=== PATIENT | female | born 1945 | race Caucasian/White ===

== ENCOUNTER → 2020-09-10 | Outpatient (CLI) | payer MEDICARE | LOC: RAD 10:07 | PROVIDERS: ATTEND Family Medicine | DX: Z12.31 Encounter for screening mammogram for malignant neoplasm of breast (principal) | CPT/HCPCS: 77063 ==

== ENCOUNTER → 2022-05-06 | Outpatient (CLI) | payer MEDICARE ==
--- NOTE | 2022-05-06 16:49 | Diagnostic Imaging Report ---
Indication: Routine screening. Comparison is made with prior mammograms from 09/10/2020 and 05/31/2018. Unilateral right 2-D and 3-D screening mammography was performed with CAD. Right breast is heterogeneously dense, limiting the sensitivity of mammography. No mass or malignant-appearing microcalcifications are seen. Right axilla is unremarkable. IMPRESSION: BI-RADS Category 1 No mammographic features suspicious for malignancy are identified. ACR BI-RADS Category 1: Negative. Result letter will be mailed to the patient. Note: At least 10% of breast cancer is not imaged by mammography. Dictated by: Dictated on workstation # [id number]
== END ==
LOC: RAD 10:29
PROVIDERS: ATTEND Nurse Practitioner Family
DX: Z12.31 Encounter for screening mammogram for malignant neoplasm of breast (principal)
CPT/HCPCS: 77063

== ENCOUNTER 2023-02-07 23:14 | Inpatient (IN) | payer MEDICARE ==
[~2023-02-07] VITALS: Ht 167.7 cm; Wt 146.7 kg
[2023-02-08 00:02] LABS: BASOPHILS % (AUTO) 0 % (0-10); EOSINOPHILS # (AUTO) 0.1 10^3/uL (0.0-0.3); EOSINOPHILS % (AUTO) 1 % (0-10); HEMATOCRIT 39 % (35-52); HEMOGLOBIN 12.8 g/dL (11.5-16.0); LYMPHOCYTES # (AUTO) 0.5 10^3/uL (1.0-4.0); LYMPHOCYTES % (AUTO) 5 % (12-44); MEAN CORPUSCULAR HEMOGLOBIN 34 pg (25-34); MEAN CORPUSCULAR HGB CONC 33 g/dL (32-36); MEAN CORPUSCULAR VOLUME 104 fL (80-99); MEAN PLATELET VOLUME 9.2 fL (9.0-12.2); MONOCYTES # (AUTO) 0.5 10^3/uL (0.0-1.0); MONOCYTES % (AUTO) 6 % (0-12); NEUTROPHILS # (AUTO) 7.5 10^3/uL (1.8-7.8); NEUTROPHILS % (AUTO) 85 % (42-75); PLATELET COUNT 135 10^3/uL (130-400); WHITE BLOOD COUNT 8.8 10^3/uL (4.3-11.0)
[2023-02-08 00:10] LABS: INR 1.3 (0.8-1.4); PROTHROMBIN TIME PATIENT 16.4 SEC (12.2-14.7)
[2023-02-08 00:17] LABS: BAND NEUTROPHILS 4 %; EOSINOPHILS % (MANUAL) 1 %; LYMPHOCYTES % (MANUAL) 4 %; MONOCYTES % (MANUAL) 4 %; NEUTROPHILS % (MANUAL) 87 %; PLATELET ESTIMATE ADEQUATE
[2023-02-08 00:18] LABS: ANISOCYTOSIS SLIGHT; POIKILOCYTOSIS MODERATE
[2023-02-08 00:21] LABS: ALBUMIN 2.6 GM/DL (3.2-4.5); BILIRUBIN,TOTAL 2.9 MG/DL (0.1-1.0); CALCIUM 8.4 MG/DL (8.5-10.1); CREATININE SERUM 1.33 MG/DL (0.60-1.30); POTASSIUM 4.3 MMOL/L (3.6-5.0); TOTAL PROTEIN 5.5 GM/DL (6.4-8.2)
--- NOTE | 2023-02-08 00:24 | ED General ---
General Chief Complaint: Respiratory Problems Stated Complaint: SOA Nursing Triage Note: Pt presents via EMS with c/o SOA worsening over the past week, and increasing confusion. Pt states that she was tested for covid on tuesday, and was negative. 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 She also reports increased swelling in feet and legs. Pt denies chest pain. Source of Information: Patient Exam Limitations: No Limitations History of Present Illness Date Seen by Provider: Feb 07, 2023 Time Seen by Provider: 23:17 Initial Comments This 77-year-old woman presents to the emergency room via [facility] with concerns about shortness of breath, confusion, marked edema in the lower e xtremities and left upper extremity, and a significant functional decline. Oxygen saturation was 86% on room air but quickly resuscitated with nasal cannula at 3 L administered by EMS. Patient does not normally require oxygen at home. She has mild fever with temperature of 100.4 F during assessment. She tested negative for COVID-19 on February 04. Patient is alert and talkative but disoriented and a confused historian. Family reports she has had difficulty with memory recently. She has also been incontinent. She has had significant functional decline over the last 6 weeks. She has been ambulating with a walker or cane independently for the past several months but was unable to ambulate independently today. She was not able to get in and out of bed or the vehicle on her own. Her edema has been progressively worsening. She does have chronic edema of the left upper extremity due to mastectomy. She has recently been prescribed Lasix a few days per week due to the edema. Her primary care provider is Dr. Watson. Her structural technician is Dr. Sunshine in [place]. Allergies and Home Medications Allergies Coded Allergies: Penicillins (Verified Allergy, Unknown, 02/08/23) Patient Home Medication List Home Medication List Reviewed: Yes Review of Systems Review of Systems Constitutional: see HPI EENTM: no symptoms reported Respiratory: see HPI Cardiovascular: see HPI Gastrointestinal: no symptoms reported Genitourinary: no symptoms reported : No Musculoskeletal: no symptoms reported Skin: no symptoms reported Psychiatric/Neurological: See HPI Hematologic/Lymphatic: No Symptoms Reported Immunological/Allergic: no symptoms reported Past Bpxzjxu-Lguxac-Uxgjib Hx Patient Social History Tobacco Use?: No Substance use?: No Alcohol Use?: No Past Medical History Surgeries: Yes Breast (Left mastectomy), Gallbladder, Hysterectomy Cardiac: Yes ("Enlarged heart") Neurological: No : No Genitourinary: Yes Renal Failure (Chronic kidney disease of unknown baseline) Gastrointestinal: No Musculoskeletal: No Endocrine: Yes Diabetes, Non-Insulin dep HEENT: No Cancer: Yes Breast, Ovarian Psychosocial: No Integumentary: No Physical Exam-Suspected Sepsis Physical Exam Vital Signs Vital Signs - First Documented 02/07/23 23:20 Temp 38.0 Pulse 102 Resp 22 B/P (MAP) 110/63 (79) Pulse Ox 96 O2 Delivery Nasal Cannula O2 Flow Rate 2.00 Capillary Refill : Less Than 3 Seconds Blood Pressure Mean: 79 Height, Weight, BMI Height: '" Weight: lbs. oz. kg; 49.00 BMI Method: General Appearance: No Apparent Distress, WD/WN, Obese HEENT: PERRL/EOMI, Normal ENT Inspection Neck: Normal Inspection; No JVD Respiratory: No Crackles; Decreased Breath Sounds (Diminished in the bases); No Wheezing; Other (Increased work of breathing in the expiratory phase) Cardiovascular: Regular Rate, Rhythm, Systolic Murmur, Other (Marked lower extremity and left upper extremity edema.) Gastrointestinal: Normal Bowel Sounds, Non Tender, Soft Extremity: Non Tender, Pedal Edema, Swelling (Bilateral LE's and left upper extremity. LUE edema is chronic but worsened.) Skin: normal color, warm/dry Focused Exam Sepsis Stage: Sepsis Reason for ruling out sepsis: Sepsis uncertain Lactate Level 02/07/23 23:45: Lactic Acid Level 2.26*H 02/08/23 02:27: Lactic Acid Level 2.06*H Time of Focused Exam: 01:50 Respiratory: Decreased Breath Sounds; No Wheezing; Other (increased work of breathing in expiratory phase) Cardiovascular: Regular Rate, Rhythm, Other (marked LE edema and left hand edema) Capillary Refill: Less Than 3 Seconds Skin: normal color, warm/dry Lactic Acid Level Laboratory Tests Test 02/07/23 23:45 02/08/23 02:27 Lactic Acid Level 2.26 MMOL/L (0.50-2.00) *H 2.06 MMOL/L (0.50-2.00) *H Within 3hrs of presentation: Admin ABX, Blood cultures prior to ABX's, Focus exam, Lactate level Progress/Results/Core Measures Suspected Sepsis SIRS Temperature: Pulse: 102 Respiratory Rate: 22 Laboratory Tests 02/07/23 23:45: White Blood Count 8.8 Blood Pressure 110 /63 Mean: 79 02/07/23 23:45: Lactic Acid Level 2.26*H 02/08/23 02:27: Lactic Acid Level 2.06*H Laboratory Tests 02/07/23 23:45: Creatinine 1.33H, INR Comment 1.3, Platelet Count 135, Total Bilirubin 2.9H Results/Orders Lab Results Laboratory Tests Test 02/07/23 23:22 02/07/23 23:40 02/07/23 23:45 02/08/23 00:30 Range/Units Influenza Type A (RT-PCR) Not Detected Not Detecte Influenza Type B (RT-PCR) Not Detected Not Detecte SARS-CoV-2 RNA (RT-PCR) Not Detected Not Detecte Glucometer 104 70-110 MG/DL White Blood Count 8.8 4.3-11.0 10^3/uL Red Blood Count 3.72 L 3.80-5.11 10^6/uL Hemoglobin 12.8 11.5-16.0 g/dL Hematocrit 39 35-52 % Mean Corpuscular Volume 104 H 80-99 fL Mean Corpuscular Hemoglobin 34 25-34 pg Mean Corpuscular Hemoglobin Concent 33 32-36 g/dL Red Cell Distribution Width 15.1 H 10.0-14.5 % Platelet Count 135 130-400 10^3/uL Mean Platelet Volume 9.2 9.0-12.2 fL Immature Granulocyte % (Auto) 2 % Neutrophils (%) (Auto) 85 H 42-75 % Lymphocytes (%) (Auto) 5 L 12-44 % Monocytes (%) (Auto) 6 0-12 % Eosinophils (%) (Auto) 1 0-10 % Basophils (%) (Auto) 0 0-10 % Neutrophils # (Auto) 7.5 1.8-7.8 10^3/uL Lymphocytes # (Auto) 0.5 L 1.0-4.0 10^3/uL Monocytes # (Auto) 0.5 0.0-1.0 10^3/uL Eosinophils # (Auto) 0.1 0.0-0.3 10^3/uL Basophils # (Auto) 0.0 0.0-0.1 10^3/uL Immature Granulocyte # (Auto) 0.2 H 0.0-0.1 10^3/uL Neutrophils % (Manual) 87 % Lymphocytes % (Manual) 4 % Monocytes % (Manual) 4 % Eosinophils % (Manual) 1 % Band Neutrophils 4 % Platelet Estimate ADEQUATE Poikilocytosis MODERATE Anisocytosis SLIGHT Macrocytosis SLIGHT Prothrombin Time 16.4 H 12.2-14.7 SEC INR Comment 1.3 0.8-1.4 Activated Partial Thromboplast Time 37 H 24-35 SEC Sodium Level 136 135-145 MMOL/L Potassium Level 4.3 3.6-5.0 MMOL/L Chloride Level 104 98-107 MMOL/L Carbon Dioxide Level 22 21-32 MMOL/L Anion Gap 10 5-14 MMOL/L Blood Urea Nitrogen 33 H 7-18 MG/DL Creatinine 1.33 H 0.60-1.30 MG/DL Estimat Glomerular Filtration Rate 41 BUN/Creatinine Ratio 25 Glucose Level 116 H 70-105 MG/DL Lactic Acid Level 2.26 *H 0.50-2.00 MMOL/L Calcium Level 8.4 L 8.5-10.1 MG/DL Corrected Calcium 9.5 8.5-10.1 MG/DL Magnesium Level 2.0 1.6-2.4 MG/DL Total Bilirubin 2.9 H 0.1-1.0 MG/DL Aspartate Amino Transf (AST/SGOT) 32 5-34 U/L Alanine Aminotransferase (ALT/SGPT) 16 0-55 U/L Alkaline Phosphatase 111 40-136 U/L C-Reactive Protein High Sensitivity 12.42 H 0.00-0.50 MG/DL B-Type Natriuretic Peptide 579.9 H <100.0 PG/ML Total Protein 5.5 L 6.4-8.2 GM/DL Albumin 2.6 L 3.2-4.5 GM/DL TSH Garvin Testing 1.59 0.35-4.94 UIU/ML Urine Color YELLOW Urine Clarity CLEAR Urine pH 5.0 5-9 Urine Specific [place] 1.010 L 1.016-1.022 Urine Protein NEGATIVE NEGATIVE Urine Glucose (UA) 3+ H NEGATIVE Urine Ketones NEGATIVE NEGATIVE Urine Nitrite NEGATIVE NEGATIVE Urine Bilirubin NEGATIVE NEGATIVE Urine Urobilinogen 1.0 < = 1.0 MG/DL Urine Leukocyte Esterase NEGATIVE NEGATIVE Urine RBC (Auto) TRACE H NEGATIVE Urine RBC RARE /HPF Urine WBC NONE /HPF Urine Squamous Epithelial Cells RARE /HPF Urine Crystals PRESENT H /LPF Urine Amorphous Sediment FEW DARION URATES H /LPF Urine Bacteria NEGATIVE /HPF Urine Casts NONE /LPF Urine Mucus SMALL H /LPF Urine Culture Indicated NO Test 02/08/23 02:27 Range/Units Lactic Acid Level 2.06 *H 0.50-2.00 MMOL/L My Orders Orders - BALWINDER DAVIS MD Bnp [place] (02/07/23 23:23) Cbc With Automated Diff (02/07/23 23:23) Comprehensive Metabolic Panel (02/07/23 23:23) Magnesium (02/07/23 23:23) Thyroid Analyzer (02/07/23 23:23) Ua Culture If Indicated (02/07/23 23:23) Ed Iv/Invasive Line Start (02/07/23 23:23) Ekg Tracing (02/07/23 23:23) Monitor-Rhythm Ecg Trace Only (02/07/23 23:23) Covid 19 Inhouse Test (02/07/23 23:23) Influenza A And B By Pcr (02/07/23 23:23) Richter Cath (02/07/23 23:47) Blood Culture (02/07/23 23:49) Sputum Culture (02/07/23 23:49) Protime With Inr (02/07/23 23:49) Partial Thromboplastin Time (02/07/23 23:49) Vital Signs Adult Sepsis Patie Q15M (02/07/23 23:49) O2 (02/07/23 23:49) Remove Rings In Anticipation O (02/07/23 23:49) Lactic Acid Analyzer (02/07/23 23:49) Manual Differential (02/07/23 23:45) Chest 1 View, Ap/Pa Only (02/08/23 00:01) Hs C Reactive Protein (02/08/23 00:18) Arterial Blood Gas (02/08/23 00:20) Acetaminophen Tablet (Acetaminophen Ta (02/08/23 00:30) Meropenem Injection (Meropenem Injection (02/08/23 01:00) Furosemide Injection (Furosemide Injec (02/08/23 01:00) Ipratropium/Albuterol Inh Soln (Ipratrop (02/08/23 01:45) Svn Small Volume Nebulizer (02/08/23 01:39) Code/Resuscitation (02/08/23 02:08) Medications Given in ED Current Medications Medications Dose Ordered Sig/Rhonda Route Start Time Stop Time Status Last Admin Dose Admin Acetaminophen 1,000 mg ONCE ONCE PO 02/08/23 00:30 02/08/23 00:31 DC 02/08/23 00:42 1,000 MG Albuterol/ Ipratropium 3 ml ONCE ONCE INH 02/08/23 01:45 02/08/23 01:46 DC 02/08/23 01:54 3 ML Furosemide 40 mg ONCE ONCE IVP 02/08/23 01:00 02/08/23 01:01 DC 02/08/23 01:01 40 MG Meropenem 1000 mg/ Sodium Chloride 100 ml @ 200 mls/hr ONCE ONCE IV 02/08/23 01:00 02/08/23 01:29 DC 02/08/23 01:05 200 MLS/HR Vital Signs/I&O 02/07/23 02/08/23 02/08/23 02/08/23 23:20 00:01 00:04 01:55 Temp 38.0 Pulse 102 Resp 22 B/P (MAP) 110/63 (79) Pulse Ox 96 96 92 O2 Delivery Nasal Cannula Nasal Cannula Nasal Cannula Nasal Cannula O2 Flow Rate 2.00 2.00 2.00 2.00 Capillary Refill : Less Than 3 Seconds Blood Pressure Mean: 79 Point of Care Testing Finger Stick Blood Glucose: 104 Blood Glucose Action Taken: DR. DAVIS NOTIFIED Progress Note #1: Time: 02:20 Progress Note Patient was interviewed and examined upon arrival. Report was received from EMS. She remained on nasal cannula at 2 L and was stable. Septic work-up was pursued. Source of infection is presumed to be the lungs as there is evidence of infiltrate on chest x-ray. There also appears to be a possible pleural effusion on the right. Antibiotic therapy with meropenem was initiated after blood cultures were obtained. Meropenem was selected due to the penicillin allergy. Patient appears to be fluid overloaded as well. Lasix 40 mg IV was administered in the emergency room. Labs were obtained, reviewed, and int erpreted by me. CBC was relatively unremarkable. There was a relative absolute lymphocytes of 0.5. This brings the negative COVID-19 test into question. CMP demonstrated renal impairment with creatinine of 1.33 and a GFR of 41. Remainder of CMP was fairly unremarkable. Thyroid analyzer and magnesium were normal. Lactic acid was elevated at 2.26. CRP was elevated at 12. ABG could not be obtained after multiple attempts. EKG demonstrated sinus rhythm with no ischemic features. Progress Note #2: Time: 02:55 Progress Note Patient has now been transferred to the ICU. Report was given to Dr. Mcfarland, [facility] physician. CODE STATUS was discussed with family who elected a DNR status after conversing amongst themselves. Patient was not asked directly regarding CODE STATUS as she was too confused to make an informed decision. DuoNeb treatment was administered due to prolonged expiratory phase on repeat evaluation. Patient reported DuoNeb provided improvement in symptoms. ECG Initial ECG Impression Date: Feb 07, 2023 Initial ECG Impression Time: 23:43 Initial ECG Rate: 89 Comment Sinus rhythm with no ST elevation or depression. Right bundle branch block. No axis deviation. Diagnostic Imaging Diagonstic Imaging: Xray Plain Films/CT/US/NM/MRI: chest Comments Chest x-ray viewed by me. Report not yet available. There appears to be bilateral lower lobe infiltrates and/or edema with probable right pleural effusion. Perihilar consolidations are noted on the right. Departure Communication (Admissions) Time/Spoke to Admitting Phy: 00:55 Dr. Peter Impression Primary Impression: Pneumonia Qualified Codes: J18.9 - Pneumonia, unspecified organism Additional Impressions: Hypoxia Fluid overload Qualified Codes: E87.70 - Fluid overload, unspecified AMS (altered mental status) Qualified Codes: R41.82 - Altered mental status, unspecified Disposition: 09 ADMITTED INPATIENT Condition: Stable Admissions Decision to Admit Reason: Admit from ER (General) Decision to Admit/Date: Feb 08, 2023 Time/Decision to Admit Time: 00:55 Departure-Patient Inst. Referrals: KIERSTEN WATSON MD (PCP/Family) Primary Care Physician Copy Copies To 1: KIERSTEN WATSON MD, JOSHUA T MD Feb 08, 2023 00:24
[2023-02-08] MEDS ORDERED: ACETAMINOPHEN 500 MG TABLET PO ONE (00:30)
[2023-02-08 00:41] LABS: TSH (THYROID ANALYZER) 1.59 UIU/ML (0.35-4.94)
[2023-02-08 00:45] LABS: BILIRUBIN,URINE NEGATIVE (NEGATIVE); CLARITY,URINE CLEAR; COLOR,URINE YELLOW; GLUCOSE, URINE (UA) 3+ (NEGATIVE); KETONES,URINE NEGATIVE (NEGATIVE); LEUKOCYTE ESTERASE ,URINE NEGATIVE (NEGATIVE); NITRITE,URINE NEGATIVE (NEGATIVE); PROTEIN,URINE NEGATIVE (NEGATIVE); RBC,URINE RARE /HPF
[2023-02-08 00:46] LABS: AMORPHOUS SEDIMENT,UR FEW AMOR URATES /LPF; BACTERIA,URINE NEGATIVE /HPF; SQUAMOUS EPITHELIAL CELL,UR RARE /HPF
[2023-02-08] MEDS ORDERED: FUROSEMIDE INJECTION 40 MG/4 ML VIAL IVP ONE (01:00)
[2023-02-08] MEDS ORDERED: MEROPENEM INJECTION 1,000 MG in NS (IVPB) 100 ML 100 ML IV ONE (01:00)
[2023-02-08] MEDS ORDERED: RT-Ipratropium/Albuterol NEB 3 ML VIAL INH ONE (01:45)
[2023-02-08] MEDS ORDERED: NS IV 500 ML 500 ML IV PRN (03:00)
--- NOTE | 2023-02-08 03:09 | Tele-ICU Progress Note ---
Subjective Date Seen by a Provider: Feb 08, 2023 Subjective/Events-last exam This virtual visit was conducted using real time audio/video. Thank you for asking us to see this patient for respiratory insufficiency due to CHF, possible pna. PMH: L mastectomy w chronic LUE edema. PE: Appears comfortable, obese. VSS. Temp 38 degrees. O2 sat 96% on 2 LPM HEENT: No obvious masses, adenopathy or JVD. Chest: clear to auscultation. Diminished. CV: RRR S1 S2 No murmur or added sounds. Abd: Non-tender. Bowel sounds Y. : Unremarkable. Richter Y. COLON THERAPIST/psychiatric: Grossly intact. No obvious focal findings. Extremities: 3+ edema: BLE, LUE. Capillary refill < 3 seconds. Skin: unremarkable. Results: Elevated BNP 579.9, Lactate 2.28, BUN 33, Creat 1.33, BG 116. CXR: B congestion, R pl. eff., cannot R/O pna. Available chart/ vitals / labs / images reviewed. Video assessment done using teleICU camera, rest of exam as per RN. A/P: Respiratory insufficiency: Continue present management with O2, duonebs. Monitor for increasing oxygenation needs and/or need for intubation. Critical Care: critically ill patient. Cont. Lasix, abx. ECHO ordered. Discussed with ANDRES Wiggins and ER MD Dr. Healy. Asked RN to reach out to eICU if any questions or concerns later. Time spent with patient/coordination of care with other health professionals (mins): 20 Sepsis Event Evaluation Height, Weight, BMI Height: '" Weight: lbs. oz. kg; 49.00 BMI Method: Focused Exam Lactate Level 02/07/23 23:45: Lactic Acid Level 2.26*H 02/08/23 02:27: Lactic Acid Level 2.06*H Time of Focused Exam: 01:50 Lactic Acid Level Laboratory Tests Test 02/07/23 23:45 02/08/23 02:27 Lactic Acid Level 2.26 MMOL/L (0.50-2.00) *H 2.06 MMOL/L (0.50-2.00) *H Exam Exam Patient acknowledged, consented, and participated in this virtual visit which was conducted using real time audio/video Vital Signs Date Time Temp Pulse Resp B/P (MAP) Pulse Ox O2 Delivery O2 Flow Rate FiO2 02/08/23 01:55 92 Nasal Cannula 2.00 02/08/23 00:04 96 Nasal Cannula 2.00 02/08/23 00:01 Nasal Cannula 2.00 02/07/23 23:20 38.0 102 22 110/63 (79) 96 Nasal Cannula 2.00 Height & Weight Height: '" Weight: lbs. oz. kg; 49.00 BMI Method: General Appearance: No Apparent Distress, WD/WN, Obese HEENT: PERRL/EOMI, Normal ENT Inspection Neck: Normal Inspection; No JVD Respiratory: Decreased Breath Sounds; No Wheezing; Other (increased work of breathing in expiratory phase) Cardiovascular: Regular Rate, Rhythm, Other (marked LE edema and left hand edema) Capillary Refill: Less Than 3 Seconds Extremity: Non Tender, Pedal Edema, Swelling (Bilateral LE's and left upper extremity. LUE edema is chronic but worsened.) Results Lab Laboratory Tests 02/07/23 23:45 Assessment/Plan Assessment/Plan See free text. Critical Care: Critically Ill Patient PREET BUTLER MD Feb 08, 2023 03:09
[2023-02-08 03:14] VITALS: BP 110/63
[2023-02-08] MEDS ORDERED: RT-Ipratropium/Albuterol NEB 3 ML VIAL INH PRN (03:30)
[2023-02-08] MEDS ORDERED: ACETAMINOPHEN 500 MG TABLET PO PRN (04:00)
[2023-02-08] MEDS ORDERED: ONDANSETRON INJECTION 4 MG/2 ML (SDV) IV PRN (04:00)
[2023-02-08 05:08] LABS: BASOPHILS # (AUTO) 0.1 10^3/uL (0.0-0.1); BASOPHILS % (AUTO) 1 % (0-10); EOSINOPHILS % (AUTO) 0 % (0-10); HEMATOCRIT 35 % (35-52); HEMOGLOBIN 11.5 g/dL (11.5-16.0); LYMPHOCYTES # (AUTO) 0.4 10^3/uL (1.0-4.0); LYMPHOCYTES % (AUTO) 3 % (12-44); MEAN CORPUSCULAR HEMOGLOBIN 34 pg (25-34); MEAN CORPUSCULAR HGB CONC 33 g/dL (32-36); MEAN CORPUSCULAR VOLUME 103 fL (80-99); MEAN PLATELET VOLUME 9.4 fL (9.0-12.2); MONOCYTES # (AUTO) 1.6 10^3/uL (0.0-1.0); MONOCYTES % (AUTO) 11 % (0-12); NEUTROPHILS % (AUTO) 83 % (42-75); PLATELET COUNT 113 10^3/uL (130-400); WHITE BLOOD COUNT 14.4 10^3/uL (4.3-11.0)
[2023-02-08 05:36] LABS: ALBUMIN 2.2 GM/DL (3.2-4.5); BILIRUBIN,TOTAL 2.9 MG/DL (0.1-1.0); CREATININE SERUM 1.36 MG/DL (0.60-1.30); MAGNESIUM 1.7 MG/DL (1.6-2.4); PHOSPHORUS 2.5 MG/DL (2.3-4.7); POTASSIUM 4.3 MMOL/L (3.6-5.0); TOTAL PROTEIN 4.8 GM/DL (6.4-8.2)
[2023-02-08 05:51] LABS: BAND NEUTROPHILS 3 %; ELLIPT/OVALOCYTES SLIGHT; LYMPHOCYTES % (MANUAL) 3 %; MONOCYTES % (MANUAL) 10 %; NEUTROPHILS % (MANUAL) 84 %
[2023-02-08 05:52] LABS: ANISOCYTOSIS SLIGHT; POIKILOCYTOSIS SLIGHT
[2023-02-08] MEDS: POTASSIUM CL 10MEQ/50ML IVPB 50 ML IV SCH (06:17)
[2023-02-08] MEDS: POTASSIUM CHLORIDE 20 MEQ TABLET PO SCH (06:18)
[2023-02-08] MEDS: MAGNESIUM 1 GM/100 ML IVPB 100 ML IV SCH ×4 (06:18→09:05)
[2023-02-08] MEDS: CATHETER FLUSH 10 ML SYR IVP SCH ×2 (06:32→14:51)
[2023-02-08] MEDS ORDERED: MEROPENEM 500 MG/NS 100 ML IVPB IV SCH ×4 (08:00→09:00)
--- NOTE | 2023-02-08 08:40 | Diagnostic Imaging Report ---
INDICATION: Shortness of air COMPARISON: None available TECHNIQUE: Single radiograph of the chest dated 02/08/2023. FINDINGS: The cardiac silhouette is at upper limits of normal in size. Central pulmonary vascular congestion is present. Bibasilar patchy opacities are present with associated small right basilar pleural effusion. No significant left pleural effusion. No pneumothorax. No acute osseous abnormality. IMPRESSION: Bibasilar pulmonary opacities with associated small right pleural effusion. Findings are favored to relate to edema given central pulmonary vascular congestion. Infectious infiltrate would be an additional consideration. Agree with preliminary interpretation. Dictated by: Dictated on workstation # [id number]
--- NOTE | 2023-02-08 09:33 | Consultation-Cardiology ---
HPI-Cardiology Cardiology Consultation Date of Consultation 02/08/23 Date of Admission Time Seen by Provider: 09:29 Indication: Peripheral edema HPI 77-year-old lady with a history of breast cancer, was having increasing shortness of breath, peripheral edema. She has significant deterioration in functional capacity. She has been seeing Dr. Sunshine. She had work-up done with [facility] cardiology group, had an echo done. Currently laying down in bed, comfortable, still having generalized weakness. She was no adonis to have elevation in BNP. Home Medications & Allergies Allergies: Coded Allergies: Penicillins (Verified Allergy, Unknown, 02/08/23) Home Medication List Reviewed: Yes [id number] Hx Patient Social History Marital Status: Employed/Student: retired Smoking Status: Never a Smoker Alcohol Use?: No Past Medical History Discussed below Family Medical History Significant Family History: No Pertinent Family Hx Review of Systems-General Review of Systems Constitutional: see HPI, malaise, weakness EENTM: no symptoms reported Respiratory: see HPI, dyspnea on exertion, short of breath Cardiovascular: see HPI; No chest pain; edema; No Hx of Intervention, No palpitations, No syncope, No vascular heart diseas, No other Gastrointestinal: no symptoms reported Genitourinary: no symptoms reported : No Musculoskeletal: no symptoms reported Skin: no symptoms reported Psychiatric/Neurological: See HPI Reviewed Test Results Reviewed Test Results Lab Laboratory Tests Test 02/07/23 23:22 02/07/23 23:40 02/07/23 23:45 02/08/23 00:30 Range/Units Influenza Type A (RT-PCR) Not Detected Not Detecte Influenza Type B (RT-PCR) Not Detected Not Detecte SARS-CoV-2 RNA (RT-PCR) Not Detected Not Detecte Glucometer 104 70-110 MG/DL White Blood Count 8.8 4.3-11.0 10^3/uL Red Blood Count 3.72 L 3.80-5.11 10^6/uL Hemoglobin 12.8 11.5-16.0 g/dL Hematocrit 39 35-52 % Mean Corpuscular Volume 104 H 80-99 fL Mean Corpuscular Hemoglobin 34 25-34 pg Mean Corpuscular Hemoglobin Concent 33 32-36 g/dL Red Cell Distribution Width 15.1 H 10.0-14.5 % Platelet Count 135 130-400 10^3/uL Mean Platelet Volume 9.2 9.0-12.2 fL Immature Granulocyte % (Auto) 2 % Neutrophils (%) (Auto) 85 H 42-75 % Lymphocytes (%) (Auto) 5 L 12-44 % Monocytes (%) (Auto) 6 0-12 % Eosinophils (%) (Auto) 1 0-10 % Basophils (%) (Auto) 0 0-10 % Neutrophils # (Auto) 7.5 1.8-7.8 10^3/uL Lymphocytes # (Auto) 0.5 L 1.0-4.0 10^3/uL Monocytes # (Auto) 0.5 0.0-1.0 10^3/uL Eosinophils # (Auto) 0.1 0.0-0.3 10^3/uL Basophils # (Auto) 0.0 0.0-0.1 10^3/uL Immature Granulocyte # (Auto) 0.2 H 0.0-0.1 10^3/uL Neutrophils % (Manual) 87 % Lymphocytes % (Manual) 4 % Monocytes % (Manual) 4 % Eosinophils % (Manual) 1 % Band Neutrophils 4 % Platelet Estimate ADEQUATE Poikilocytosis MODERATE Anisocytosis SLIGHT Macrocytosis SLIGHT Prothrombin Time 16.4 H 12.2-14.7 SEC INR Comment 1.3 0.8-1.4 Activated Partial Thromboplast Time 37 H 24-35 SEC Sodium Level 136 135-145 MMOL/L Potassium Level 4.3 3.6-5.0 MMOL/L Chloride Level 104 98-107 MMOL/L Carbon Dioxide Level 22 21-32 MMOL/L Anion Gap 10 5-14 MMOL/L Blood Urea Nitrogen 33 H 7-18 MG/DL Creatinine 1.33 H 0.60-1.30 MG/DL Estimat Glomerular Filtration Rate 41 BUN/Creatinine Ratio 25 Glucose Level 116 H 70-105 MG/DL Lactic Acid Level 2.26 *H 0.50-2.00 MMOL/L Calcium Level 8.4 L 8.5-10.1 MG/DL Corrected Calcium 9.5 8.5-10.1 MG/DL Magnesium Level 2.0 1.6-2.4 MG/DL Total Bilirubin 2.9 H 0.1-1.0 MG/DL Aspartate Amino Transf (AST/SGOT) 32 5-34 U/L Alanine Aminotransferase (ALT/SGPT) 16 0-55 U/L Alkaline Phosphatase 111 40-136 U/L C-Reactive Protein High Sensitivity 12.42 H 0.00-0.50 MG/DL B-Type Natriuretic Peptide 579.9 H <100.0 PG/ML Total Protein 5.5 L 6.4-8.2 GM/DL Albumin 2.6 L 3.2-4.5 GM/DL TSH [place] Testing 1.59 0.35-4.94 UIU/ML Urine Color YELLOW Urine Clarity CLEAR Urine pH 5.0 5-9 Urine Specific [place] 1.010 L 1.016-1.022 Urine Protein NEGATIVE NEGATIVE Urine Glucose (UA) 3+ H NEGATIVE Urine Ketones NEGATIVE NEGATIVE Urine Nitrite NEGATIVE NEGATIVE Urine Bilirubin NEGATIVE NEGATIVE Urine Urobilinogen 1.0 < = 1.0 MG/DL Urine Leukocyte Esterase NEGATIVE NEGATIVE Urine RBC (Auto) TRACE H NEGATIVE Urine RBC RARE /HPF Urine WBC NONE /HPF Urine Squamous Epithelial Cells RARE /HPF Urine Crystals PRESENT H /LPF Urine Amorphous Sediment FEW DARION URATES H /LPF Urine Bacteria NEGATIVE /HPF Urine Casts NONE /LPF Urine Mucus SMALL H /LPF Urine Culture Indicated NO Test 02/08/23 02:27 02/08/23 04:47 Range/Units Lactic Acid Level 2.06 *H 1.70 0.50-2.00 MMOL/L White Blood Count 14.4 H 4.3-11.0 10^3/uL Red Blood Count 3.38 L 3.80-5.11 10^6/uL Hemoglobin 11.5 11.5-16.0 g/dL Hematocrit 35 35-52 % Mean Corpuscular Volume 103 H 80-99 fL Mean Corpuscular Hemoglobin 34 25-34 pg Mean Corpuscular Hemoglobin Concent 33 32-36 g/dL Red Cell Distribution Width 15.0 H 10.0-14.5 % Platelet Count 113 L 130-400 10^3/uL Mean Platelet Volume 9.4 9.0-12.2 fL Immature Granulocyte % (Auto) 2 % Neutrophils (%) (Auto) 83 H 42-75 % Lymphocytes (%) (Auto) 3 L 12-44 % Monocytes (%) (Auto) 11 0-12 % Eosinophils (%) (Auto) 0 0-10 % Basophils (%) (Auto) 1 0-10 % Neutrophils # (Auto) 12.0 H 1.8-7.8 10^3/uL Lymphocytes # (Auto) 0.4 L 1.0-4.0 10^3/uL Monocytes # (Auto) 1.6 H 0.0-1.0 10^3/uL Eosinophils # (Auto) 0.0 0.0-0.3 10^3/uL Basophils # (Auto) 0.1 0.0-0.1 10^3/uL Immature Granulocyte # (Auto) 0.3 H 0.0-0.1 10^3/uL Neutrophils % (Manual) 84 % Lymphocytes % (Manual) 3 % Monocytes % (Manual) 10 % Band Neutrophils 3 % Poikilocytosis SLIGHT Anisocytosis SLIGHT Macrocytosis SLIGHT Elliptocytes SLIGHT Sodium Level 137 135-145 MMOL/L Potassium Level 4.3 3.6-5.0 MMOL/L Chloride Level 106 98-107 MMOL/L Carbon Dioxide Level 22 21-32 MMOL/L Anion Gap 9 5-14 MMOL/L Blood Urea Nitrogen 34 H 7-18 MG/DL Creatinine 1.36 H 0.60-1.30 MG/DL Estimat Glomerular Filtration Rate 40 BUN/Creatinine Ratio 25 Glucose Level 104 70-105 MG/DL Calcium Level 8.0 L 8.5-10.1 MG/DL Corrected Calcium 9.4 8.5-10.1 MG/DL Phosphorus Level 2.5 2.3-4.7 MG/DL Magnesium Level 1.7 1.6-2.4 MG/DL Total Bilirubin 2.9 H 0.1-1.0 MG/DL Aspartate Amino Transf (AST/SGOT) 33 5-34 U/L Alanine Aminotransferase (ALT/SGPT) 14 0-55 U/L Alkaline Phosphatase 92 40-136 U/L C-Reactive Protein High Sensitivity 10.50 H 0.00-0.50 MG/DL B-Type Natriuretic Peptide 1027.4 H <100.0 PG/ML Total Protein 4.8 L 6.4-8.2 GM/DL Albumin 2.2 L 3.2-4.5 GM/DL Physical Exam Physical Exam Vital Signs Vital Signs - First Documented 02/07/23 02/08/23 23:20 03:14 Temp 38.0 Pulse 102 Resp 22 B/P (MAP) 110/63 (79) Pulse Ox 96 O2 Delivery Nasal Cannula O2 Flow Rate 2.00 FiO2 28 Capillary Refill : Less Than 3 Seconds Height, Weight, BMI Height: '" Weight: lbs. oz. kg; 52.69 BMI Method: General Appearance: No Apparent Distress, WD/WN, Obese HEENT: PERRL/EOMI, Normal ENT Inspection Neck: Normal Inspection; No JVD Respiratory: Decreased Breath Sounds; No Wheezing; Other (increased work of breathing in expiratory phase) Cardiovascular: Regular Rate, Rhythm, Other (marked LE edema and left hand edema) Gastrointestinal: Normal Bowel Sounds, Non Tender, Soft Extremity: Non Tender, Pedal Edema, Swelling (Bilateral LE's and left upper extremity. LUE edema is chronic but worsened.) A/P-Cardiology Admission Diagnosis Generalized weakness Shortness of breath Peripheral edema Breast cancer Assessment/Plan Generalized weakness, fatigue and loss of energy. Elevated lactic acid, temperature 100. Questionable underlying sepsis and pneumonia. Managed by primary care team Congestive heart failure, elevated BNP Patient had a recent echo done with [facility] cardiology group. I will try to obtain copy of the records Starting diuretics History of breast cancer, left mastectomy Hypertension, monitor blood pressure Obesity, BMI 52 Renal insufficiency, monitor renal function KRISTA ALLISON MD Feb 08, 2023 09:33
--- NOTE | 2023-02-08 09:43 | History & Physical ---
KRYSTAL REYES 02/08/23 0943: History of Present Illness History of Present Illness Reason for visit/HPI 02/08/2023: Lucila is a 77 year old female that came to the ER on 02/07 due to SOB, confusion, and increased edema of extremities. The edema is present in the lower extremities bilaterally and the left arm. Lucila states that she has been feeling worse over the past 6 weeks, with her respiratory symptoms occurring in the past few weeks. She says that she tested negative for COVID Ag test, but still thought she should come to the ER. In the ER she was given ABX and Lasix for potential pneumonia and CHF. Lucila has recently started seeing Dr. Sunshine in [place], [place] for heart concerns. Lucila was stating low with oxygen saturation in the ER, so she was started on supplemental O2 while at the hospital. She denies using oxygen at home. She is mainly concerned about her respiratory symptoms. She notes that it is hard to catch her breath, but the oxygen is helpi ng. She also notes that she hasn't been able to be as active due to her SOB. Associated with this, she has a cough. Lucila denies any pain, more that she is not comfortable. She also notes that she usually has edema, but the edema is much more pronounced currently. She has a PMH of breast cancer, starting treatment in 1998 and having a L-mastectomy in 2001. She also endorses history of chemotherapy and radiation. She also has had a hysterectomy. Lucila is in good spirits, but would like to know what is going on. She no longer endorses confusion. She has no other concerns. Date of Admission Feb 08, 2023 at 02:42 Date Seen by a Provider: Feb 08, 2023 Time Seen by a Provider: 08:00 I consulted on this patient on 02/08/23 09:33 Attending Physician Kenna Watson MD Admitting Physician Admitting Physician: Anne-Marie Hyman DO Attending Physician: Anne-Marie Hyman DO Consult Allergies and Home Medications Allergies Coded Allergies: Penicillins (Verified Allergy, Unknown, 02/08/23) Patient Home Medication List Home Medication List Reviewed: Yes Calcium Carbonate (Calcium) 600 Mg Calcium (1500 Mg) Tablet, 600 MG PO DAILY, (Reported) Entered as Reported by: VIPUL FRAIRE on 02/08/23 6431 Last Action: Continued Empagliflozin (Jardiance) 25 Mg Tablet, 25 MG PO DAILY, (Reported) Entered as Reported by: VIPUL FRAIRE on 02/08/231608 Last Action: Held Furosemide (Furosemide) 40 Mg Tablet, 40 MG PO MO,WE,FR, (Reported) Entered as Reported by: VIPUL FRAIRE on 02/08/231608 Last Action: Held Hydrocodone/Acetaminophen (Hydrocodone-Acetamin 5-325 mg) 5 Mg-325 Mg Tablet, 1 TAB PO Q8H PRN for PAIN-MODERATE (5-7), (Reported) Entered as Reported by: VIPUL FRAIRE on 02/08/231608 Last Action: Held Hydrocodone/Acetaminophen (Hydrocodone-Acetamin 5-325 mg) 5 Mg-325 Mg Tablet, 2 EA PO HS, (Reported) Entered as Reported by: VIPUL FRAIRE on 02/08/231608 Last Action: Continued Multivitamin (Multivitamin) 1 Each Tablet, 1 EACH PO DAILY, (Reported) Entered as Reported by: VIPUL FRAIRE on 02/08/231608 Last Action: Converted Mv,Iron,Min/Folic Acid/Biotin (Hair, Skin & Nails Softgel) 66.7 Mcg-1,666.7 Mcg Capsule, 66.7 MCG PO DAILY, (Reported) Entered as Reported by: VIPUL FRAIRE on 02/08/231609 Last Action: Held Discontinued Medications Multivitamin with Minerals (Hair, Skin & Nails) 1 Each Tablet, 1 EACH PO DAILY, (Reported) Discontinued Reason: Duplicate Order Entered as Reported by: VIPUL FRAIRE on 02/08/231608 Last Action: Discontinued Past Kzzyzvk-Ezvzul-Jmdanv Hx Patient Social History Marrital Status: Employed/Student: retired Tobacco Use?: No Smoking Status: Never a Smoker Smokeless Tobacco Frequency: Never a User Use of E-Cig and/or Vaping dev: No Use of E-Cig and/or Vaping Evin: Never a User Substance use?: No Alcohol Use?: No Pt feels they are or have been: No Current Status status: No status: No Advance Directives: Unable to obtain Communicates: Verbally Primary Language: Zimbabwean Preferred Spoken Language: Zimbabwean Is interpretation needed?: No Implanted or Applied Medical D: None Past Medical History Surgeries: Breast (Left mastectomy), Gallbladder, Hysterectomy Currently Using BIPAP: No Chronic Edema/Swelling LIFE SCIENTIST History: Hysterectomy Renal Failure (Chronic kidney disease of unknown baseline) Diabetes, Non-Insulin dep Breast, Ovarian Did You Recieve Any Treatments: Yes What Type of Treatment Did You: Chemotherapy, Radiation, Surgical Intervention (2001; L-mastectomy, Hysterectomy) Diagnosed in 1998 Family Medical History No Pertinent Family Hx Review of Systems Constitutional: No chills, No diaphoresis, No dizziness, No fever; malaise EENTM: no symptoms reported Respiratory: see HPI, cough, dyspnea on exertion, short of breath Cardiovascular: see HPI, edema Gastrointestinal: no symptoms reported Genitourinary: no symptoms reported : No Musculoskeletal: no symptoms reported Skin: other (edema) Psychiatric/Neurological: No Symptoms Reported Physical Exam Vital Signs Vital Signs - First Documented 02/07/23 02/08/23 23:20 03:14 Temp 38.0 Pulse 102 Resp 22 B/P (MAP) 110/63 (79) Pulse Ox 96 O2 Delivery Nasal Cannula O2 Flow Rate 2.00 FiO2 28 Capillary Refill : Less Than 3 Seconds Height, Weight, BMI Height: '" Weight: lbs. oz. kg; 52.69 BMI Method: General Appearance: No Apparent Distress, WD/WN, Obese Eyes: Bilateral Eye PERRL, Bilateral Eye EOMI HEENT: PERRL/EOMI Neck: Full Range of Motion, Normal Inspection, Non Tender, Supple; No Carotid Bruit Respiratory: Chest Non Tender, No Accessory Muscle Use, Crackles Cardiovascular: Normal Peripheral Pulses; No Diastolic Murmur, No Systolic Murmur; Other (edema) Gastrointestinal: Normal Bowel Sounds, Non Tender Rectal: Deferred Back: No Vertebral Tenderness Extremity: Normal Inspection, Non Tender, Pedal Edema Neurologic/Psychiatric: Alert, Oriented x3, Normal Mood/Affect, meter inspector II-XII Norm as Tested Skin: Normal Color, Warm/Dry Lymphatic: No Adenopathy Assessment/Plan Assessment and Plan 02/08/2023: Assessment: * Acute Hypoxic Respiratory Failure * Pneumonia * CHF * Chronic Kidney Disease, unspecified * Hx of radiation Plan: * Supplement O2 with nasal cannula * Meropenem (100mg) for Pneumonia * Cardiology Consult with ECHO (pt notes ECHO done a month ago in [place]) * Monitor CMP for BUN/Cr Problems: (1) Acute respiratory failure with hypoxia Assessment & Plan: O2 supplementation (2) Pneumonia Status: Acute Qualifiers: Qualified Codes: J18.9 - Pneumonia, unspecified organism Assessment & Plan: Meropenem (ABX) (3) CHF (congestive heart failure) Status: Chronic Qualifiers: Assessment & Plan: Consult cardiology; Lasix (4) Chronic kidney disease, unspecified Status: Chronic Qualifiers: Qualified Codes: N18.9 - Chronic kidney disease, unspecified Assessment & Plan: Monitor CMP for BUN, Cr, eGFR changes (5) Hx of radiation therapy Status: Chronic Admission Diagnosis Acute Hypoxic Respiratory Failure with Pneumonia Admission Status: Inpatient Order (span 2 midnights) Reason for Inpatient Admission: Supplemental O2, Kidney Monitoring, Cardiology consult ANNE-MARIE HYMAN DO 02/08/23 2009: History of Present Illness History of Present Illness Reason for visit/HPI CC: Acute hypoxic respiratory failure HPI: This is a 77yoWF clinic patient of Dr Watson who has a h/o breast cancer in 1998 and left mastectomy 2001 and then hyst due to cervical cancer who presented to the ER in acute resp failure due to CHF new onset and PNA. Patient requires O2 and does not use at home and has no h/o VA but appears to have the condition. Allergies and Home Medications Allergies Coded Allergies: Penicillins (Verified Allergy, Unknown, 02/08/23) Patient Home Medication List Calcium Carbonate (Calcium) 600 Mg Calcium (1500 Mg) Tablet, 600 MG PO DAILY, (Reported) Entered as Reported by: VIPUL FRAIRE on 02/08/231608 Last Action: Continued Empagliflozin (Jardiance) 25 Mg Tablet, 25 MG PO DAILY, (Reported) Entered as Reported by: VIPUL FRAIRE on 02/08/231608 Last Action: Held Furosemide (Furosemide) 40 Mg Tablet, 40 MG PO MO,WE,FR, (Reported) Entered as Reported by: VIPUL FRAIRE on 02/08/231608 Last Action: Held Hydrocodone/Acetaminophen (Hydrocodone-Acetamin 5-325 mg) 5 Mg-325 Mg Tablet, 1 TAB PO Q8H PRN for PAIN-MODERATE (5-7), (Reported) Entered as Reported by: VIPUL FRAIRE on 02/08/231608 Last Action: Held Hydrocodone/Acetaminophen (Hydrocodone-Acetamin 5-325 mg) 5 Mg-325 Mg Tablet, 2 EA PO HS, (Reported) Entered as Reported by: VIPUL FRAIRE on 02/08/231608 Last Action: Continued Multivitamin (Multivitamin) 1 Each Tablet, 1 EACH PO DAILY, (Reported) Entered as Reported by: VIPUL FRAIRE on 02/08/231608 Last Action: Converted Mv,Iron,Min/Folic Acid/Biotin (Hair, Skin & Nails Softgel) 66.7 Mcg-1,666.7 Mcg Capsule, 66.7 MCG PO DAILY, (Reported) Entered as Reported by: VIPUL FRAIRE on 02/08/231609 Last Action: Held Discontinued Medications Multivitamin with Minerals (Hair, Skin & Nails) 1 Each Tablet, 1 EACH PO DAILY, (Reported) Discontinued Reason: Duplicate Order Entered as Reported by: VIPUL FRAIRE on 02/08/231608 Last Action: Discontinued Past Iluunkz-Fblwdm-Jkehsp Hx Patient Social History Marrital Status: Smoking Status: Never a Smoker Past Medical History Did You Recieve Any Treatments: Yes Review of Systems Constitutional: see HPI Respiratory: dyspnea on exertion, short of breath Physical Exam General Appearance: WD/WN, Anxious, Chronically ill, Mild Distress, Obese Respiratory: No Accessory Muscle Use, Decreased Breath Sounds Cardiovascular: Regular Rate, Rhythm Assessment/Plan Assessment and Plan Acute hypoxic resp failure PNA CHF Breast cancer Plan: ICU Risk for intubation Supervisory-Addendum Brief Verification & Attestation Participated in pt care: history, MDM, physical Personally performed: exam, history, MDM, supervision of care Care discussed with: Medical Student Procedures: n/a Results interpretation: Verified all documentation Verification and Attestation of Medical Student E/M Service A medical student performed and documented this service in my presence. I reviewed and verified all information documented by the medical student and made modifications to such information, when appropriate. I personally performed the physical exam and medical decision making. Anne-Marie Hyman Feb 08, 2023,20:07 KRYSTAL REYES Feb 08, 2023 09:43 ANNE-MARIE HYAMN DO Feb 08, 2023 20:09
[2023-02-08] MEDS: RT-Ipratropium/Albuterol NEB 3 ML VIAL INH SCH ×3 (10:59→21:13)
[2023-02-08] MEDS: HYDROcodone/ACETAMINOPHEN 5 MG/325 MG TABLET PO PRN (14:52)
[2023-02-08] MEDS: MEROPENEM 500 MG/NS 100 ML IVPB IV SCH ×4 (15:28→20:29)
[2023-02-08] MEDS ORDERED: MULT-1136 PO (16:09)
[2023-02-08] MEDS ORDERED: MULT-1054 PO (16:09)
[2023-02-08] MEDS ORDERED: EMPA25TA PO (16:09)
[2023-02-08] MEDS ORDERED: CALC600T91 PO (16:09)
[2023-02-08] MEDS ORDERED: ACHD5005 PO ×2 (16:09)
[2023-02-08] MEDS ORDERED: FURO40TA4 PO (16:09)
[2023-02-08] MEDS ORDERED: MV,I66.7 PO (16:10)
[2023-02-08] MEDS: FUROSEMIDE INJECTION 40 MG/4 ML VIAL IVP SCH (17:13)
[2023-02-08] MEDS: HYDROcodone/ACETAMINOPHEN 5 MG/325 MG TABLET PO SCH (20:30)
[2023-02-09] MEDS: CATHETER FLUSH 10 ML SYR IVP SCH ×3 (02:37→14:00)
[2023-02-09] MEDS: MEROPENEM 500 MG/NS 100 ML IVPB IV SCH ×8 (02:38→20:36)
[2023-02-09] MEDS: RT-Ipratropium/Albuterol NEB 3 ML VIAL INH SCH ×3 (03:40→21:21)
[2023-02-09 04:36] LABS: HEMOGLOBIN 11.1 g/dL (11.5-16.0)
[2023-02-09 04:39] LABS: BASOPHILS % (AUTO) 1 % (0-10); EOSINOPHILS # (AUTO) 0.2 10^3/uL (0.0-0.3); EOSINOPHILS % (AUTO) 2 % (0-10); HEMATOCRIT 34 % (35-52); LYMPHOCYTES % (AUTO) 12 % (12-44); MEAN CORPUSCULAR HEMOGLOBIN 35 pg (25-34); MEAN CORPUSCULAR HGB CONC 33 g/dL (32-36); MEAN CORPUSCULAR VOLUME 105 fL (80-99); MEAN PLATELET VOLUME 9.3 fL (9.0-12.2); MONOCYTES # (AUTO) 0.8 10^3/uL (0.0-1.0); MONOCYTES % (AUTO) 10 % (0-12); NEUTROPHILS # (AUTO) 6.3 10^3/uL (1.8-7.8); NEUTROPHILS % (AUTO) 76 % (42-75); PLATELET COUNT 130 10^3/uL (130-400); WHITE BLOOD COUNT 8.3 10^3/uL (4.3-11.0)
[2023-02-09 04:42] LABS: SMEAR SCAN COMMENT YES
[2023-02-09 04:52] LABS: ALBUMIN 2.1 GM/DL (3.2-4.5)
[2023-02-09 04:53] LABS: POTASSIUM 4.2 MMOL/L (3.6-5.0)
[2023-02-09 04:55] LABS: TOTAL PROTEIN 4.7 GM/DL (6.4-8.2)
[2023-02-09 04:58] LABS: PHOSPHORUS 3.4 MG/DL (2.3-4.7)
[2023-02-09 04:59] LABS: CREATININE SERUM 1.67 MG/DL (0.60-1.30)
[2023-02-09 05:01] LABS: MAGNESIUM 2.3 MG/DL (1.6-2.4)
[2023-02-09] MEDS: POTASSIUM CL 10MEQ/50ML IVPB 50 ML IV SCH (05:11)
[2023-02-09] MEDS: POTASSIUM CHLORIDE 20 MEQ TABLET PO SCH (05:11)
[2023-02-09] MEDS: MAGNESIUM 1 GM/100 ML IVPB 100 ML IV SCH (05:11)
[2023-02-09] MEDS: THERAPEUTIC MULTIVITAMIN W/MINERALS TABLET PO SCH (06:09)
[2023-02-09] MEDS: FUROSEMIDE INJECTION 40 MG/4 ML VIAL IVP SCH ×2 (06:09→17:32)
[2023-02-09] MEDS: HYDROcodone/ACETAMINOPHEN 5 MG/325 MG TABLET PO PRN (06:10)
[2023-02-09] MEDS: CALCIUM CARBONATE 600 MG TABLET PO SCH (08:14)
[2023-02-09] MEDS ORDERED: NON-FORMULARY MEDICATION 1 EA EA (Multivitamin 1 EACH) PO SCH (09:00)
--- NOTE | 2023-02-09 10:35 | Tele-ICU Progress Note ---
Subjective Date Seen by a Provider: Feb 09, 2023 Time Seen by a Provider: 10:34 Subjective/Events-last exam (Tele-ICU Physician , Progress Note ) Service provided via interactive audio and video telecommunications E-CARE system to a patient admitted to ICU bed in [facility]. Patient is seen today due to persistent need of ICU care Available chart/ vitals / labs / Images reviewed Video assessment done using teleICU camera, rest of exam as per RN Discussed with RN Events overnight : Afebrile hemodynamically stable Respiratory - I/O = Drips: Pressors- no Hospital course: A/P Uspected infection , ? PNA Generalized weakness, fatigue and loss of energy. low grade fever - AVX started CHF - EF 50 % , gr II dst dsfnct , RVSP 30 -diuretics, consuider to use albumin SHAWANDA - with diuresis - monitor LEXX - ? neet to assess for DVT - as per bedside - suggested compression dressing History of breast cancer, left mastectomy Hypertension, monitor blood pressure Obesity, BMI 52 Lines : , (Central Line Necessity Reviewed) Richter: OG: Nutrition: Analgesia: Anxiety/ delirium VTE Prophylaxis: SCD, Stress Ulcer Prophylaxis: Plans in collaboration with bedside consultants and IM MDs. Discussed with RN to reach out if any questions or concerns Case and care daily discussed on multidisciplinary rounds ( RN, PharmD, Childbirth And Infant Care Teacher , Respiratory Therapy, relay worker ) A total of 15 minutes of critical care time was devoted to this patient today, required to treat and/or prevent further deterioration of critical care condition ( as above ) . I am remotely monitoring this patient from another state. I am unable to do the bedside exam, and history/physical and pertinent information is taken from other notes in the computer and bedside staff. Sepsis Event Evaluation Height, Weight, BMI Height: '" Weight: lbs. oz. kg; 54.50 BMI Method: Focused Exam Lactate Level 02/07/23 23:45: Lactic Acid Level 2.26*H 02/08/23 02:27: Lactic Acid Level 2.06*H 02/08/23 04:47: Lactic Acid Level 1.70 Time of Focused Exam: 01:50 Exam Exam Patient acknowledged, consented, and participated in this virtual visit which was conducted using real time audio/video Vital Signs Date Time Temp Pulse Resp B/P (MAP) Pulse Ox O2 Delivery O2 Flow Rate FiO2 02/09/23 09:00 61 120/59 (79) 94 Room Air 02/09/23 08:27 95 Room Air 1.00 02/09/23 08:24 36.1 02/09/23 08:00 66 126/58 (80) 93 Room Air 02/09/23 07:07 69 02/09/23 07:00 Room Air 02/09/23 07:00 70 118/60 (79) 93 Room Air 02/09/23 06:00 65 134/76 (95) 95 Nasal Cannula 1.00 02/09/23 05:00 57 137/80 (99) 97 Nasal Cannula 1.00 02/09/23 04:50 35.9 02/09/23 04:27 94 Nasal Cannula 1.00 02/09/23 04:00 57 126/68 (88) 96 Nasal Cannula 1.00 02/09/23 03:40 94 Nasal Cannula 1.00 02/09/23 03:06 55 114/60 (81) 98 Nasal Cannula 1.00 02/09/23 03:00 54 78/46 (61) 97 Nasal Cannula 1.00 02/09/23 02:11 65 104/44 (66) 95 Nasal Cannula 1.00 02/09/23 02:00 59 68/38 (48) 97 Nasal Cannula 1.00 02/09/23 01:00 64 118/46 (74) 95 Nasal Cannula 1.00 02/09/23 01:00 64 02/09/23 00:00 36.0 02/09/23 00:00 57 146/47 (80) 96 Nasal Cannula 1.00 02/09/23 00:00 36.1 02/08/23 23:59 96 Nasal Cannula 1.00 02/08/23 23:00 59 158/44 (82) 94 Nasal Cannula 1.00 02/08/23 22:00 69 163/64 (97) 95 Nasal Cannula 1.00 02/08/23 21:14 94 Nasal Cannula 1.00 02/08/23 21:00 60 142/68 (96) 94 Nasal Cannula 1.00 02/08/23 20:00 36.2 02/08/23 20:00 59 136/72 (93) 93 Nasal Cannula 1.00 02/08/23 20:00 96 Nasal Cannula 1.00 02/08/23 19:00 68 138/70 (93) 93 Nasal Cannula 1.00 02/08/23 19:00 68 02/08/23 18:00 65 121/49 (73) 96 Nasal Cannula 1.00 02/08/23 17:00 61 24 123/47 (72) 93 Nasal Cannula 1.00 02/08/23 16:00 95 Nasal Cannula 1.00 02/08/23 16:00 67 24 109/50 (69) 95 Nasal Cannula 1.00 02/08/23 15:27 35.9 02/08/23 15:00 76 24 107/43 (64) 96 Nasal Cannula 1.00 02/08/23 14:00 69 17 116/69 (85) 96 Nasal Cannula 1.00 02/08/23 13:00 74 17 118/55 (76) 94 Nasal Cannula 1.00 02/08/23 12:45 70 02/08/23 12:43 36.4 02/08/23 12:00 72 11 119/56 (77) 94 Nasal Cannula 1.00 02/08/23 12:00 96 Nasal Cannula 2.00 02/08/23 11:17 Nasal Cannula 1.00 I & O 02/09/23 07:00 Intake Total 1660 ml Output Total 625 ml Balance 1035 ml Height & Weight Height: '" Weight: lbs. oz. kg; 54.50 BMI Method: General Appearance: WD/WN, Anxious, Chronically ill, Mild Distress, Obese HEENT: PERRL/EOMI Neck: Full Range of Motion, Normal Inspection, Non Tender, Supple; No Carotid Bruit Respiratory: No Accessory Muscle Use, Decreased Breath Sounds Cardiovascular: Regular Rate, Rhythm Capillary Refill: Less Than 3 Seconds Extremity: Normal Inspection, Non Tender, Pedal Edema Neurologic/Psychiatric: Alert, Oriented x3, Normal Mood/Affect, event promotions coordinator II-XII Norm as Tested Skin: Normal Color, Warm/Dry Lymphatic: No Adenopathy Results Lab Laboratory Tests 02/07/23 23:45 02/08/23 04:47 02/09/23 03:58 Assessment/Plan Assessment/Plan 1 RANULFO MILLER MD Feb 09, 2023 10:35
--- NOTE | 2023-02-09 11:54 | Progress Note ---
KRYSTAL REYES 02/09/23 1154: Subjective Date Seen by a Provider: Feb 09, 2023 Time Seen by a Provider: 08:20 Subjective/Events-last exam 02/09/2023: CC: Acute Hypoxic Respiratory Failure HPI: 77F, since last visit notes that she is feeling better. She says that she is not in pain and is able to get comfortable today. She notes that she feels like her left arms edema is decreasing and that she is relieved to see it changing. She also notes that her feet feel better today. She is tired, but says that she usually has mild fatigue. She has had a bowel movement. She has the Askew catheter in place and says there is no discomfort. She has no concerns currently. Patient appears to be in better spirits today. Cardiology consult: continue Dejon, trying to get ECHO from [facility] in [place], [place]. Review of Systems General: No Chills, No Night Sweats; Fatigue HEENT: No Head Aches, No Visual Changes, No Eye Pain Pulmonary: Dyspnea; No Cough, No Pleuritic Chest Pain Cardiovascular: Edema; No: Chest Pain, Palpitations, Orthopnea, Paroxysmal Noc. Dyspnea, Lt Headedness Gastrointestinal: No: Nausea, Vomiting, Abdominal Pain, Diarrhea, Constipation, Melena, Hematochezia Genitourinary: No Dysuria, No Frequency, No Incontinence, No Hematuria; Other (askew catheter in place) Musculoskeletal: No: neck pain, shoulder pain, arm pain, back pain, hand pain, leg pain Neurological: No: Weakness, Numbness, Change in speech, Confusion Focused Exam Lactate Level 02/07/23 23:45: Lactic Acid Level 2.26*H 02/08/23 02:27: Lactic Acid Level 2.06*H 02/08/23 04:47: Lactic Acid Level 1.70 Time of Focused Exam: 01:50 Objective Exam Last Set of Vital Signs Vital Signs Date Time Temp Pulse Resp B/P (MAP) Pulse Ox O2 Delivery O2 Flow Rate FiO2 02/09/23 10:27 94 Room Air 02/09/23 10:00 62 106/88 (94) 02/09/23 08:27 1.00 02/09/23 08:24 36.1 02/08/23 17:00 24 02/08/23 03:14 28 Capillary Refill : Less Than 3 Seconds I&O Intake and Output 02/09/23 00:00 Intake Total 1660 ml Output Total 600 ml Balance 1060 ml Intake Oral 960 ml IV Total 700 ml Output Urine Total 600 ml Daily Weight Change No General: Alert, Oriented X3, Cooperative, No Acute Distress HEENT: Atraumatic, PERRLA Neck: Supple, No JVD, +2 Carotid Pulse No Bruit Lungs: Other (mild crackles) Heart: Regular Rate, Normal S1, Normal S2, No Murmurs, Other Abdomen: Normal Bowel Sounds, Soft Extremities: No Clubbing, No Cyanosis, Other (edema, 2+ pitting edema in bilateral LE. L-Arm edema improved, patient noticed a change) Skin: No Rashes Neuro: Normal Speech, Sensation Intact Results Lab Laboratory Tests 02/09/23 03:58: White Blood Count 8.3, Red Blood Count 3.20L, Hemoglobin 11.1L, Hematocrit 34L, Mean Corpuscular Volume 105H, Mean Corpuscular Hemoglobin 35H, Mean Corpuscular Hemoglobin Concent 33, Red Cell Distribution Width 15.3H, Platelet Count 130, Mean Platelet Volume 9.3, Immature Granulocyte % (Auto) 1, Neutrophils (%) (Auto) 76H, Lymphocytes (%) (Auto) 12, Monocytes (%) (Auto) 10, Eosinophils (%) (Auto) 2, Basophils (%) (Auto) 1, Neutrophils # (Auto) 6.3, Lymphocytes # (Auto) 1.0, Monocytes # (Auto) 0.8, Eosinophils # (Auto) 0.2, Basophils # (Auto) 0.0, Immature Granulocyte # (Auto) 0.1, Percent Immature Platelet Fraction 1.5, Sodium Level 136, Potassium Level 4.2, Chloride Level 106, Carbon Dioxide Level 20L, Anion Gap 10, Blood Urea Nitrogen 41H, Creatinine 1.67H, Estimat Glomerular Filtration Rate 31, BUN/Creatinine Ratio 25, Glucose Level 127H, Calcium Level 8.0L, Corrected Calcium 9.5, Phosphorus Level 3.4, Magnesium Level 2.3, Total Bilirubin 2.0H, Aspartate Amino Transf (AST/SGOT) 41H, Alanine Aminotransferase (ALT/SGPT) 16, Alkaline Phosphatase 92, Total Protein 4.7L, Albumin 2.1L, Smear Scan YES Microbiology 02/08/23 MRSA Screen - Final, Complete MRSA not isolated 02/08/23 Blood Culture - Preliminary, Resulted Assessment/Plan Assessment/Plan Assess & Plan/Chief Complaint 02/09/2023: Assessment: * Acute Hypoxic Respiratory Failure * Pneumonia * Congestive Heart Failure * CKD * hx. of breast cancer treated with chemo/radiation Plan: * Supplement Oxygen with NC * Meropenem for PNA * Lasix * Monitor CMP * Transfer to MED/SURG unit w/ telemetry, meropenem, PT/OT Final Diagnosis Acute Hypoxic Respiratory Failure due to CHF, probable PNA Diagnosis/Problems Diagnosis/Problems (1) Acute respiratory failure with hypoxia Assessment & Plan: O2 supplementation (2) Pneumonia Status: Acute Assessment & Plan: Meropenem (ABX) Qualifiers: Qualified Codes: J18.9 - Pneumonia, unspecified organism (3) CHF (congestive heart failure) Status: Chronic Assessment & Plan: Consult cardiology; Lasix Qualifiers: (4) Chronic kidney disease, unspecified Status: Chronic Assessment & Plan: Monitor CMP for BUN, Cr, eGFR changes Qualifiers: Qualified Codes: N18.9 - Chronic kidney disease, unspecified (5) Hx of radiation therapy Status: Chronic Clinical Quality Measures Admission Status Admission Dx Acute Hypoxic Respiratory Failure with Pneumonia ANNE-MARIE HYMAN DO 02/10/23 0502: Subjective Subjective/Events-last exam Patient doing much better Appears to be lethargic at times Cannot get an ABG due to limited complaint of right arm and they cannot get it Reviewed meds and labs She remains DNR Skilled therapy Review of Systems General: Fatigue, Malaise Objective Exam General: Alert, Oriented X3, Cooperative, No Acute Distress Lungs: Clear to Auscultation, Normal Air Movement Heart: Regular Rate, Normal S1, Normal S2, No Murmurs Psych/Mental Status: Mental Status NL, Mood NL Assessment/Plan Assessment/Plan Assess & Plan/Chief Complaint Supportive care Overall prognosis poor Needs skilled facility Supervisory-Addendum Brief Verification & Attestation Participated in pt care: history, MDM, physical Personally performed: exam, history, MDM, supervision of care Care discussed with: Medical Student Procedures: n/a Results interpretation: Verified all documentation Verification and Attestation of Medical Student E/M Service A medical student performed and documented this service in my presence. I reviewed and verified all information documented by the medical student and made modifications to such information, when appropriate. I personally performed the physical exam and medical decision making. Anne-Marie Hyman, Feb 10, 2023,05:00 KRYSTAL REYES Feb 09, 2023 11:54 ANNE-MARIE HYMAN DO Feb 10, 2023 05:02
[2023-02-09 12:48] VITALS: BP 98/80
--- NOTE | 2023-02-09 13:19 | Physical Therapy Evaluation ---
PT Evaluation-General Medical Diagnosis Admission Date Feb 08, 2023 at 02:42 Medical Diagnosis: Shortness of breath, confusion, increased edema ext. Onset Date: Feb 07, 2023 Therapy Diagnosis Therapy Diagnosis: Gait deficit, strength deficit Precautions Precautions/Isolations: Fall Prevention, Standard Precautions, Pressure Ulcer Weight Bear Status Right Lower Extremity: Right Full Weight Bearing Left Lower Extremity: Left Full Weight Bearing Referral Physician: Dr. Peter Reason for Referral: Evaluation/Treatment Medical History Reviewed History: Yes Social History Home: Apartment Current Living Status: Spouse Entry Into Home: Level Entry Prior Prior Level of Function SCALE: Activities may be completed with or without assistive devices. 1-Tvgwsydplv-pshsbal completes the activity by him/herself with no assistance from a helper. 5-Set-up or Clean-up Assistance-helper sets up or cleans up; patient completes activity. [place] assists only prior to or following the activity. 4-Supervision or Touching Assistance-helper provides verbal cues and/or touching/steadying and/or contact guard assistance as patient completes activity. Assistance may be provided throughout the activity or intermittently. 3-Partial/Moderate Assistance-helper does LESS THAN HALF the effort. [place] lifts, holds or supports trunk or limbs, but provides less than half the effort. 2-Substantial/Maximal Assistance-helper does MORE THAN HALF the effort. [place] lifts or holds trunk or limbs and provides more than half the effort. 4-Uzueogunj-yzchxe does ALL the effort. Patient does none of the effort to complete the activity. Or, the assistance of 2 or more helpers is required for the patient to complete the activity. If activity was not attempted, code reason: 7-Patient Refused. 9-Not Applicable-not attempted and the patient did not perform the activity before the current illness, exacerbation or injury. 10-Not Attempted due to Environmental Limitations-(lack of equipment, weather restraints, etc.). 88-Not Attempted due to Medical Conditions or Safety Concerns. Bed Mobility: 6 Transfers (B,C,W/C): 6 Gait: 6 Indoor Mobility (Ambulation): Independent Stairs: Not [place]licalbe Prior Devices Use: Walker PT Evaluation-Current Subjective Patient lying supine in bed upon PT arrival, agreeable to treatment. Patient rates pain at 0/10 Objective Patient Orientation: Person, Place, Time, Situation Attachments: Oxygen, Richter Catheter, IV ROM/Strength ROM Lower Extremities WFLs BLEs all planes Strength Lower Extremities 3/5 BLES all planes Sensory Vision: Functional Hearing: Functional Sensation Right Lower Extremit: Intact Sensation Left Lower Extremity: Intact Transfers Roll Left to Right (QC): 2 Sit to Lying (QC): 2 Lying to Sitting/Side of Bed(Q: 2 Sit to Stand (QC): 2 Gait Does the Patient Walk?: No and Walking Goal IS indicated Mode of Locomotion: Walk Anticipated Mode of Locomotion: Walk Balance Sitting Static: Fair Sitting Dynamic: Fair Standing Static: Poor Standing Dynamic: Poor Assessment/Needs Patient requires max A for all bed mobility and transfers. Patient unable to fully stand at EOB with max A. Patient in bed post treatment with all needs met, nursing notified, call light in reach. Rehab Potential: Fair PT Senior Business Intelligence Analyst Goals Usp Goals PT Usp Goals Time Frame: Feb 26, 2023 Roll Left & Right (QC): 4 Sit to Lying (QC): 4 Lying-Sitting on Side/Bed(QC): 4 Sit to Stand (QC): 4 Chair/Xjf-yu-Imbkc Xfer(QC): 4 Toilet Transfer (QC): 4 Walk 10 feet (QC): 4 Walk 50ft with 2 Turns (QC): 4 Walk 150 ft (QC): 4 PT Plan Problem List Problem List: Activity Tolerance, Functional Strength, Safety, Balance, Gait, Transfer, Bed Mobility, ROM Treatment/Plan Treatment Plan: Continue Plan of Care Treatment Plan: Bed Mobility, Education, Functional Activity Prudence, Functional Strength, Group Therapy, Gait, Safety, Therapeutic Exercise, Transfers Treatment Duration: Feb 26, 2023 Frequency: 6 times per week Estimated Hrs Per Day: .25 hour per day Patient and/or Family Agrees t: Yes Safety Risks/Education Patient Education: Transfer Techniques Teaching Recipient: Patient Teaching Methods: Demonstration, Discussion Response to Teaching: Reinforcement Needed Time Time In: 1140 Time Out: 1155 DATE: Feb 09, 2023 Total Billed Treatment Time: 15 Total Billed Treatment Visit, IBRAHIMA BONE PT Feb 09, 2023 13:19
--- NOTE | 2023-02-09 15:23 | Diagnostic Imaging Report ---
CLINICAL INDICATIONS: Patient with hypoxia and loss of words. EXAM: Axial CT scan of the brain without IV contrast with coronal and sagittal reformatted images. Auto Exposure Controls were utilized during the CT exam to meet ALARA standards for radiation dose reduction. COMPARISON: None. FINDINGS: There is no evidence of acute cerebral infarct, intracranial hemorrhage, or gross mass effect. There is no dense vessel sign. The brain parenchymal volume appears appropriate for patient's age. There are small focal and patchy areas of low-attenuation white matter changes involving both cerebral hemispheres and periventricular regions, likely representing mild chronic small vessel ischemic disease. 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 There is normal rowland-white matter distinction. There is no significant midline shift or herniation. There is no evidence of hydrocephalus. The basal cisterns are unremarkable. The skull, extracranial soft tissue, and orbits are unremarkable. The paranasal sinuses are unremarkable. Temporal bones show no significant abnormality. IMPRESSION: 1: There is no CT evidence of acute intracranial process. There is no dense vessel sign seen. 2: Age-related brain parenchymal changes with mild chronic small vessel ischemic disease. 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 Dictated by: Dictated on workstation # [id number]
[2023-02-09 15:37] VITALS: BP 127/44
[2023-02-09 15:56] VITALS: BP 127/44
--- NOTE | 2023-02-09 16:01 | Cardiology Progress Note ---
Subjective Date Seen by Provider: Feb 09, 2023 Time Seen by Provider: 15:59 Subjective/Events-last exam Patient was seen at bedside, feeling better, reporting improvement in her symptoms. Focused Exam Lactate Level 02/07/23 23:45: Lactic Acid Level 2.26*H 02/08/23 02:27: Lactic Acid Level 2.06*H 02/08/23 04:47: Lactic Acid Level 1.70 Time of Focused Exam: 01:50 Objective-Cardiology Exam Last Set of Vital Signs Vital Signs 02/08/23 02/09/23 02/09/23 02/09/23 03:14 08:27 12:48 15:37 Temp 36.4 Pulse 73 Resp 18 B/P (MAP) 127/44 (71) Pulse Ox 93 O2 Delivery Room Air O2 Flow Rate 1.00 FiO2 28 I&O Intake and Output 02/09/23 00:00 Intake Total 1660 ml Output Total 600 ml Balance 1060 ml Intake Oral 960 ml IV Total 700 ml Output Urine Total 600 ml Daily Weight Change No General: Alert, Oriented X3, Cooperative, No Acute Distress HEENT: Atraumatic, PERRLA Neck: Supple, No JVD, +2 Carotid Pulse No Bruit Lungs: Other (mild crackles) Heart: Regular Rate, Normal S1, Normal S2, No Murmurs, Other Abdomen: Normal Bowel Sounds, Soft Extremities: No Clubbing, No Cyanosis, Other (edema, 2+ pitting edema in bilateral LE. L-Arm edema improved, patient noticed a change) Skin: No Rashes Neuro: Normal Speech, Sensation Intact Results Lab Laboratory Tests 02/09/23 03:58 A/P-Cardiology Admission Diagnosis Generalized weakness Shortness of breath Peripheral edema Breast cancer Assessment/Plan Generalized weakness, fatigue and loss of energy. Elevated lactic acid, temperature 100. Pneumonia Improving, managed by medical team Continue to monitor Congestive heart failure, elevated BNP Acute on chronic left ventricular diastolic dysfunction 2D echo was done on February 08, 2023 with LVH, ejection fraction 50 to 55%, grade 2 diastolic dysfunction, PA pressure 35 to 40 mmHg. Pleural effusion was noted Responding well to diuretics. Continue to monitor History of breast cancer, left mastectomy Hypertension, monitor blood pressure Obesity, BMI 52 Renal insufficiency, monitor renal function KRISTA ALLISON MD Feb 09, 2023 16:01
[2023-02-09] MEDS ORDERED: ENOXAPARIN 40 MG/0.4 ML SYRINGE SC SCH (16:15)
[2023-02-09] MEDS: ENOXAPARIN 60 MG/0.6 ML SYRINGE SC SCH (17:33)
[2023-02-09] MEDS: ASPIRIN 81 MG CHEWABLE TABLET PO SCH (18:08)
[2023-02-09 20:00] VITALS: BP 111/76
[2023-02-09] MEDS: HYDROcodone/ACETAMINOPHEN 5 MG/325 MG TABLET PO SCH (20:36)
[2023-02-10] VITALS (7 sets, daily range): BP systolic 108–135; BP diastolic 51–68
[2023-02-10] MEDS: MEROPENEM 500 MG/NS 100 ML IVPB IV SCH ×6 (03:30→18:58)
[2023-02-10] MEDS: HYDROcodone/ACETAMINOPHEN 5 MG/325 MG TABLET PO PRN (03:35)
[2023-02-10] MEDS: CATHETER FLUSH 10 ML SYR IVP SCH ×4 (03:36→21:46)
[2023-02-10] MEDS: ENOXAPARIN 60 MG/0.6 ML SYRINGE SC SCH ×2 (05:56→16:59)
[2023-02-10] MEDS: FUROSEMIDE INJECTION 40 MG/4 ML VIAL IVP SCH ×2 (06:00→16:58)
[2023-02-10] MEDS: THERAPEUTIC MULTIVITAMIN W/MINERALS TABLET PO SCH (06:01)
[2023-02-10] MEDS: RT-Ipratropium/Albuterol NEB 3 ML VIAL INH SCH ×2 (08:16→20:00)
[2023-02-10] MEDS: CALCIUM CARBONATE 600 MG TABLET PO SCH (08:30)
[2023-02-10] MEDS: ASPIRIN 81 MG CHEWABLE TABLET PO SCH (08:30)
[2023-02-10 08:32] LABS: BASOPHILS # (AUTO) 0.1 10^3/uL (0.0-0.1); BASOPHILS % (AUTO) 1 % (0-10); EOSINOPHILS # (AUTO) 0.2 10^3/uL (0.0-0.3); EOSINOPHILS % (AUTO) 2 % (0-10); HEMATOCRIT 39 % (35-52); HEMOGLOBIN 12.7 g/dL (11.5-16.0); LYMPHOCYTES # (AUTO) 1.1 10^3/uL (1.0-4.0); LYMPHOCYTES % (AUTO) 12 % (12-44); MEAN CORPUSCULAR HEMOGLOBIN 34 pg (25-34); MEAN CORPUSCULAR HGB CONC 32 g/dL (32-36); MEAN CORPUSCULAR VOLUME 106 fL (80-99); MEAN PLATELET VOLUME 9.3 fL (9.0-12.2); MONOCYTES # (AUTO) 0.8 10^3/uL (0.0-1.0); MONOCYTES % (AUTO) 9 % (0-12); NEUTROPHILS # (AUTO) 7.4 10^3/uL (1.8-7.8); NEUTROPHILS % (AUTO) 77 % (42-75); PLATELET COUNT 132 10^3/uL (130-400); WHITE BLOOD COUNT 9.7 10^3/uL (4.3-11.0)
--- NOTE | 2023-02-10 08:49 | Physician Query-Final Dx ---
EDITH GONZALEZ 02/10/23 0849: Final Diagnosis Give Final Diagnosis Please give Final Diagnosis The medical record reflects the following clinical evidence: Clinical Indicators: Admission vital signs/labs :HR 102, RR 22, BP 110/63, SpO2 86% sat on room air, T 38.0, WBC 8.8, BNP 579, lactic acid 2.26, BC X 1 Pos for Streptococcus Mitis Group Risk Factor(s): PNA DX, Advanced age, Cancer Hx with Chemo, Has been having increasing SOB and started on 02 recently Treatment: ER: Acetaminophen, Meropenem IV, furosemide IV, (minimal fluids given due to CHF) Sepsis, unspecified organism, in the setting of Pneumonia, present on admission Other explanation of clinical findings Unable to determine (no explanation for clinical findings) Please clarify and document your clinical opinion in the progress notes and discharge summary including the definitive and/or presumptive diagnosis, (suspected or probable), related to the above clinical findings. Please include clinical findings supporting your diagnosis. Edith Gonzalez, MSN, RN Clinical Enrobing Machine Operator [phone] [email or web address] OLY HYMAN DO 02/10/23 0941: Final Diagnosis Give Final Diagnosis Sepsis, unspecified organism, in the setting of Pneumonia, present on admission EDITH GONZALEZ Feb 10, 2023 08:49 OLY HYMAN DO Feb 10, 2023 09:41
[2023-02-10 08:52] LABS: ALBUMIN 2.2 GM/DL (3.2-4.5); CALCIUM 8.2 MG/DL (8.5-10.1); CREATININE SERUM 1.64 MG/DL (0.60-1.30); MAGNESIUM 2.2 MG/DL (1.6-2.4); TOTAL PROTEIN 4.8 GM/DL (6.4-8.2)
--- NOTE | 2023-02-10 09:13 | Cardiology Progress Note ---
Subjective Date Seen by Provider: Feb 10, 2023 Time Seen by Provider: 09:12 Subjective/Events-last exam Patient was seen at bedside, laying down comfortably, feeling better today. Focused Exam Lactate Level 02/07/23 23:45: Lactic Acid Level 2.26*H 02/08/23 02:27: Lactic Acid Level 2.06*H 02/08/23 04:47: Lactic Acid Level 1.70 Time of Focused Exam: 01:50 Objective-Cardiology Exam Last Set of Vital Signs Vital Signs 02/09/23 02/10/23 02/10/23 15:56 04:00 07:00 Temp 36.0 Pulse 70 Resp 16 B/P (MAP) 117/51 (73) Pulse Ox 90 O2 Delivery Nasal Cannula O2 Flow Rate 1.00 FiO2 21 I&O Intake and Output 02/10/23 00:00 Intake Total 1095 ml Output Total 1275 ml Balance -180 ml Intake Oral 795 ml IV Total 300 ml Output Urine Total 1275 ml # Bowel Movements 1 General: Alert, Oriented X3, Cooperative, No Acute Distress HEENT: Atraumatic, PERRLA Neck: Supple, No JVD, +2 Carotid Pulse No Bruit Lungs: Clear to Auscultation, Normal Air Movement Heart: Regular Rate, Normal S1, Normal S2, No Murmurs Abdomen: Normal Bowel Sounds, Soft Extremities: No Clubbing, No Cyanosis, Other (edema, 2+ pitting edema in bilateral LE. L-Arm edema improved, patient noticed a change) Skin: No Rashes Neuro: Normal Speech, Sensation Intact Psych/Mental Status: Mental Status NL, Mood NL A/P-Cardiology Admission Diagnosis Generalized weakness Shortness of breath Peripheral edema Breast cancer Assessment/Plan Generalized weakness, fatigue and loss of energy. Pneumonia, sepsis Improving, managed by medical team Continue to monitor Congestive heart failure, elevated BNP Acute on chronic left ventricular diastolic dysfunction 2D echo was done on February 08, 2023 with LVH, ejection fraction 50 to 55%, grade 2 diastolic dysfunction, PA pressure 35 to 40 mmHg. Pleural effusion was noted Responding well to diuretics. Continue to monitor History of breast cancer, left mastectomy Hypertension, monitor blood pressure Obesity, BMI 52 Renal insufficiency, monitor renal function KRISTA ALLISON MD Feb 10, 2023 09:13
[2023-02-10] MEDS ORDERED: LOPERAMIDE 2 MG CAPSULE PO PRN (11:00)
[2023-02-10] MEDS ORDERED: LOPERAMIDE 2 MG CAPSULE PO ONE (11:00)
--- NOTE | 2023-02-10 11:02 | Physical Therapy Daily Note ---
PT Daily Note-Current Subjective Patient agrees to PT. Per RN, hand washer report given that patient is a 4 person assist and requires bed rest and a bed pain. Pain Section J - Health Conditions 1. Rarely or not at all 2. Occasionally 3. Frequently 4. Almost constantly 8. Unable to answer Pain Effect on Sleep: 1 Pain Interference with Therapy: 1 Pain Interference w/Day-to-Day: 1 Mental Status Patient Orientation: Normal For Age Attachments: Richter Catheter Transfers SCALE: Activities may be completed with or without assistive devices. 9-Ixagepbjrt-akilfyk completes the activity by him/herself with no assistance from a helper. 5-Set-up or Clean-up Assistance-helper sets up or cleans up; patient completes activity. [place] assists only prior to or following the activity. 4-Supervision or Touching Assistance-helper provides verbal cues and/or touching/steadying and/or contact guard assistance as patient completes activity. Assistance may be provided throughout the activity or intermittently. 3-Partial/Moderate Assistance-helper does LESS THAN HALF the effort. [place] lifts, holds or supports trunk or limbs, but provides less than half the effort. 2-Substantial/Maximal Assistance-helper does MORE THAN HALF the effort. [place] lifts or holds trunk or limbs and provides more than half the effort. 8-Yycqnxluh-fmkhci does ALL the effort. Patient does none of the effort to complete the activity. Or, the assistance of 2 or more helpers is required for the patient to complete the activity. If activity was not attempted, code reason: 7-Patient Refused. 9-Not Applicable-not attempted and the patient did not perform the activity before the current illness, exacerbation or injury. 10-Not Attempted due to Environmental Limitations-(lack of equipment, weather restraints, etc.). 88-Not Attempted due to Medical Conditions or Safety Concerns. Lying to Sitting/Side of Bed(Q: 4 Sit to Stand (QC): 3 Chair/Urr-jt-Iythp Xfer(QC): 3 Toilet Transfer (QC): 3 Weight Bearing Right Lower Extremity: Right Full Weight Bearing Left Lower Extremity: Left Full Weight Bearing Gait Training Distance: 5 steps x 2 Gait Assistive Device: FWW trunk flexed posture with FWW use Assessment Patient requires dependent assist to cleanse after BM on commode. Patient able to perform sit to stand and transfer bed to commode to recliner. Patient requires assist of 1 with all mobility and use of gait belt and FWW. PT Digital Composer Goals Chcf Goals PT Chcf Goals Time Frame: Feb 26, 2023 Roll Left & Right (QC): 4 Sit to Lying (QC): 4 Lying-Sitting on Side/Bed(QC): 4 Sit to Stand (QC): 4 Chair/Pla-ur-Tqdbg Xfer(QC): 4 Toilet Transfer (QC): 4 Walk 10 feet (QC): 4 Walk 50ft with 2 Turns (QC): 4 Walk 150 ft (QC): 4 PT Plan Treatment/Plan Treatment Plan: Continue Plan of Care Treatment Plan: Bed Mobility, Education, Functional Activity Prudence, Functional Strength, Group Therapy, Gait, Safety, Therapeutic Exercise, Transfers Treatment Duration: Feb 26, 2023 Frequency: 6 times per week Estimated Hrs Per Day: .25 hour per day Patient and/or Family Agrees t: Yes Time Time In: 1017 Time Out: 1034 DATE: Feb 10, 2023 Total Billed Treatment Time: 17 Total Billed Treatment 1 visit FA 17 min DEANNA VERDE PT Feb 10, 2023 11:02
[2023-02-10] MEDS: LACTOBACILLUS ACIDOPHILUS (PROBIOTIC) CAPSULE PO SCH ×3 (11:23→16:59)
[2023-02-10] MEDS: CHOLESTYRAMINE LITE 4 GM PACKET PO SCH ×2 (11:23→20:08)
--- NOTE | 2023-02-10 12:10 | Progress Note ---
KRYSTAL REYES 02/10/23 1210: Subjective Date Seen by a Provider: Feb 10, 2023 Time Seen by a Provider: 09:15 Subjective/Events-last exam 02/10/2023: CC: Acute Hypoxic Respiratory Failure with potential pneumonia. HPI: Since last encounter, Lucila says that she is feeling much better. She says that she was able to get a good night's sleep for the first time in a while. She says that she has had no concerns with her breathing. She notes some discomfort in her right antecubital fossa due to repeated sticks for labs. She also notes that her R-arm is now edematous, which is unusual for her. She notes that her L-arm and lower extremities are usually the only places with edema. Lucila also notes that last night she had a few episodes of diarrhea, with this causing some discomfort. She described it has some discomfort in her stomach and then an inability to control her bowels. Additionally, she notes that she is very happy with the care that she has gotten in the hospital. She has no other concerns. Updates: C. diff was negative on stool sample Cardiology was able to obtain ECHO from [facility] which showed Diastolic CHF (LVH, 50-55% EF) Head/Neck CT was negative for acute intracranial processes, chronic infarct noted with R-caudate head PT notes that she is a max assist for transfers Review of Systems General: No Chills, No Night Sweats, No Fatigue, No Malaise HEENT: No Head Aches, No Visual Changes Pulmonary: No Dyspnea, No Cough Cardiovascular: Edema; No: Chest Pain, Palpitations, Lt Headedness Gastrointestinal: Abdominal Pain, Diarrhea; No: Nausea, Vomiting, Constipation, Melena Genitourinary: Other (askew catheter in place, plan to remove) Musculoskeletal: No: neck pain, shoulder pain, arm pain, hand pain, leg pain, foot pain Neurological: No: Weakness, Numbness, Incoordination, Change in speech, Confusion Focused Exam Lactate Level 02/07/23 23:45: Lactic Acid Level 2.26*H 02/08/23 02:27: Lactic Acid Level 2.06*H 02/08/23 04:47: Lactic Acid Level 1.70 Time of Focused Exam: 01:50 Objective Exam Last Set of Vital Signs Vital Signs Date Time Temp Pulse Resp B/P (MAP) Pulse Ox O2 Delivery O2 Flow Rate FiO2 02/10/23 11:51 36.1 71 16 119/64 (82) 94 Room Air 02/10/23 04:00 1.00 02/09/23 15:56 21 Capillary Refill : Less Than 3 Seconds I&O Intake and Output 02/10/23 00:00 Intake Total 1095 ml Output Total 1275 ml Balance -180 ml Intake Oral 795 ml IV Total 300 ml Output Urine Total 1275 ml # Bowel Movements 1 General: Alert, Oriented X3, Cooperative, No Acute Distress HEENT: Atraumatic Neck: Supple, No JVD, No Thyromegaly Lungs: Normal Air Movement, Other (very slight inspiratory wheeze) Heart: Regular Rate, Normal S1, Normal S2, Other (edema in all extremities (3+ in LE, 2+ in UE) ) Abdomen: Normal Bowel Sounds, Soft Extremities: No Clubbing, No Cyanosis, Other (edema) Skin: No Rashes, No Breakdown, No Significant Lesion Neuro: Normal Speech, Normal Tone, Sensation Intact Results Lab Laboratory Tests 02/10/23 08:25: White Blood Count 9.7, Red Blood Count 3.71L, Hemoglobin 12.7, Hematocrit 39, Mean Corpuscular Volume 106H, Mean Corpuscular Hemoglobin 34, Mean Corpuscular Hemoglobin Concent 32, Red Cell Distribution Width 15.4H, Platelet Count 132, Mean Platelet Volume 9.3, Immature Granulocyte % (Auto) 1, Neutrophils (%) (Auto) 77H, Lymphocytes (%) (Auto) 12, Monocytes (%) (Auto) 9, Eosinophils (%) (Auto) 2, Basophils (%) (Auto) 1, Neutrophils # (Auto) 7.4, Lymphocytes # (Auto) 1.1, Monocytes # (Auto) 0.8, Eosinophils # (Auto) 0.2, Basophils # (Auto) 0.1, Immature Granulocyte # (Auto) 0.1, Sodium Level 136, Potassium Level 4.0, Chloride Level 105, Carbon Dioxide Level 23, Anion Gap 8, Blood Urea Nitrogen 4 4H, Creatinine 1.64H, Estimat Glomerular Filtration Rate 32, BUN/Creatinine Ratio 27, Glucose Level 99, Calcium Level 8.2L, Corrected Calcium 9.6, Magnesium Level 2.2, Total Bilirubin 2.0H, Aspartate Amino Transf (AST/SGOT) 39H, Alanine Aminotransferase (ALT/SGPT) 16, Alkaline Phosphatase 91, Total Protein 4.8L, Albumin 2.2L Microbiology 02/10/23 C. difficile GDH Antigen & Toxins - Final, Complete, not isolated 02/08/23 MRSA Screen - Final, Complete MRSA not isolated 02/08/23 Blood Culture - Preliminary, Resulted Assessment/Plan Assessment/Plan Assess & Plan/Chief Complaint 02/09/2023: Assessment: * Acute Hypoxic Respiratory Failure * Pneumonia * Congestive Heart Failure * CKD * hx. of breast cancer treated with chemo/radiation Plan: * Supplement Oxygen with NC * Meropenem for PNA * Lasix * Monitor CMP * Transfer to MED/SURG unit w/ telemetry, meropenem, PT/OT 02/10/2023: Assessment: * Acute Hypoxic Respiratory failure * Pneumonia * Acute on Chronic L-Ventricular Diastolic Dysfunction * CKD Plan: * Supplement O2 as needed, patient removed NC often * Meropenem * Lasix * CMP * [facility] Final Diagnosis Acute Hypoxic Respiratory Failure with possible pneumonia; Diastolic CHF Diagnosis/Problems Diagnosis/Problems (1) Acute respiratory failure with hypoxia Assessment & Plan: O2 supplementation (2) Pneumonia Status: Acute Assessment & Plan: Meropenem (ABX) Qualifiers: Qualified Codes: J18.9 - Pneumonia, unspecified organism (3) CHF (congestive heart failure) Status: Chronic Assessment & Plan: Consult cardiology; Lasix Qualifiers: Qualified Codes: I50.33 - Acute on chronic diastolic (congestive) heart failure (4) Chronic kidney disease, unspecified Status: Chronic Assessment & Plan: Monitor CMP for BUN, Cr, eGFR changes Qualifiers: Qualified Codes: N18.9 - Chronic kidney disease, unspecified (5) Hx of radiation therapy Status: Chronic Clinical Quality Measures Admission Status Admission Dx Acute Hypoxic Respiratory Failure with Pneumonia ANNE-MARIE HYMAN DO 02/11/23 0503: Subjective Subjective/Events-last exam Patient doing a lot better Sitting in chair No falls Awaiting jail placement Objective Exam General: Alert, Oriented X3, Cooperative, No Acute Distress Lungs: Clear to Auscultation, Normal Air Movement Psych/Mental Status: Mental Status NL Assessment/Plan Assessment/Plan Assess & Plan/Chief Complaint Await [facility] [place] Supervisory-Addendum Brief Verification & Attestation Participated in pt care: history, MDM, physical Personally performed: exam, history, MDM, supervision of care Care discussed with: Medical Student Procedures: n/a Results interpretation: Verified all documentation Verification and Attestation of Medical Student E/M Service A medical student performed and documented this service in my presence. I reviewed and verified all information documented by the medical student and made modifications to such information, when appropriate. I personally performed the physical exam and medical decision making. Anne-Marie Hyman, Feb 11, 2023,05:01 KRYSTAL REYES Feb 10, 2023 12:10 ANNE-MARIE HYMAN DO Feb 11, 2023 05:03
--- NOTE | 2023-02-10 15:24 | Occupational Therapy Eval ---
OT Evaluation-General/PLF Medical Diagnosis Admission Date Feb 08, 2023 at 02:42 Medical Diagnosis: Shortness of breath, confusion, increased edema ext. Onset Date: Feb 07, 2023 Therapy Diagnosis Therapy Diagnosis: weakness Precautions Precautions/Isolations: Fall Prevention Comments TPA given day of admission Weight Bear Status Weight Bearing Restriction: Full Weight Bearing Referral Physician: Dr. Peter Medical History Additional Medical History Cancer Reviewed History: Yes Social History Home: Apartment Current Living Status: Spouse Entry Into Home: Level Entry ADL-Prior Level of Function SCALE: Activities may be completed with or without assistive devices. 5-Exmzrkhfdx-xetnyde completes the activity by him/herself with no assistance from a helper. 5-Set-up or Clean-up Assistance-helper sets up or cleans up; patient completes activity. [place] assists only prior to or following the activity. 4-Supervision or Touching Assistance-helper provides verbal cues and/or touching/steadying and/or contact guard assistance as patient completes activity. Assistance may be provided throughout the activity or intermittently. 3-Partial/Moderate Assistance-helper does LESS THAN HALF the effort. [place] lifts, holds or supports trunk or limbs, but provides less than half the effort. 2-Substantial/Maximal Assistance-helper does MORE THAN HALF the effort. [place] lifts or holds trunk or limbs and provides more than half the effort. 3-Jbdyzbkem-gxbjrk does ALL the effort. Patient does none of the effort to complete the activity. Or, the assistance of 2 or more helpers is required for the patient to complete the activity. If activity was not attempted, code reason: 7-Patient Refused. 9-Not Applicable-not attempted and the patient did not perform the activity before the current illness, exacerbation or injury. 10-Not Attempted due to Environmental Limitations-(lack of equipment, weather restraints, etc.). 88-Not Attempted due to Medical Conditions or Safety Concerns. Self Care: Needed Some Help Functional Cognition: Independent OT Current Status Subjective Bright eyed and ready to move Pain Numeric Pain Scale: 0-No Pain Mental Status/Objective Patient Orientation: Person, Place, Time, Situation Attachments: Oxygen, Telemetry Current Glasses/Contacts: Yes Hand Dominance: Right Upper Extremity ROM BUE ROM WFLS Upper Extremity Coordination INTACT Upper Extremity Sensation INTACT Upper Extremity Strength +3/5 ADL-Treatment Eating (QC): 6 Oral Hygiene (QC): 5 Shower/Bathe Self (QC): 7 Upper Body Dressing (QC): 4 Lower Body Dressing (QC): 4 On/Off Footwear (QC): 5 Toileting Hygiene (QC): 4 LOB x3 w/ patient regaining posture. Education OT Patient Education: Correct positioning, Energy conservation, Home exercise program, Instructions to caregiver, Modified ADL techniques OT Printing Grey Cloth Tender Goals Printing Grey Cloth Tender Goals 1=Demonstrate adherence to instructed precautions during ADL tasks. 2=Patient will verbalize/demonstrate understanding of assistive devices/modifications for ADL. 3=Patient will improve strength/tolerance for activity to enable patient to perform ADL's. OT Education/Plan Problem List/Assessment Assessment: Decreased Activ Tolerance, Decreased UE Strength, Impaired Coordination, Impaired Funct Balance, Impaired Self-Care Skills Discharge Recommendations Plan/Recommendations: Continue POC Treatment Plan/Plan of Care Treatment,Training & Education: Yes Patient would benefit from OT for education, treatment and training to promote independence in ADL's, mobility, safety and/or upper extremity function for ADL's. Plan of Care: ADL Retraining, Concurrent Therapy, Functional Mobility, Group Exercise/Act as Ind, UE Funct Exercise/Act Treatment Duration: Feb 14, 2023 Frequency: 3 times per week (3-5 times per week) Estimated Hrs Per Day: .25 hour per day Rehab Potential: Fair Time Start Time: 14:02 Stop Time: 14:20 DATE: Feb 10, 2023 Total Time Billed (hr/min): 18 Billed Treatment Time EVM 18 min MIGUEL HERNÁNDEZ OT Feb 10, 2023 15:24
--- NOTE | 2023-02-10 15:29 | Occupational Therapy Eval ---
OT Evaluation-General/PLF Medical Diagnosis Admission Date Feb 08, 2023 at 02:42 Medical Diagnosis: Shortness of breath, confusion, increased edema ext. Onset Date: Feb 07, 2023 Therapy Diagnosis Therapy Diagnosis: weakness Precautions Precautions/Isolations: Fall Prevention Weight Bear Status Weight Bearing Restriction: Full Weight Bearing Referral Physician: Dr. Peter Referral Reason: Self Care, Evaluation/Treatment Medical History Reviewed History: Yes Social History Home: Apartment Current Living Status: Spouse Entry Into Home: Level Entry ADL-Prior Level of Function SCALE: Activities may be completed with or without assistive devices. 0-Dhwkyrozew-wtjjvwn completes the activity by him/herself with no assistance from a helper. 5-Set-up or Clean-up Assistance-helper sets up or cleans up; patient completes activity. [place] assists only prior to or following the activity. 4-Supervision or Touching Assistance-helper provides verbal cues and/or touching/steadying and/or contact guard assistance as patient completes activity. Assistance may be provided throughout the activity or intermittently. 3-Partial/Moderate Assistance-helper does LESS THAN HALF the effort. [place] lifts, holds or supports trunk or limbs, but provides less than half the effort. 2-Substantial/Maximal Assistance-helper does MORE THAN HALF the effort. [place] lifts or holds trunk or limbs and provides more than half the effort. 5-Cfkoqnipb-nxgiow does ALL the effort. Patient does none of the effort to complete the activity. Or, the assistance of 2 or more helpers is required for the patient to complete the activity. If activity was not attempted, code reason: 7-Patient Refused. 9-Not Applicable-not attempted and the patient did not perform the activity before the current illness, exacerbation or injury. 10-Not Attempted due to Environmental Limitations-(lack of equipment, weather restraints, etc.). 88-Not Attempted due to Medical Conditions or Safety Concerns. ADL PLOF Comments helps w/ marlon/BM hygiene care Self Care: Needed Some Help Functional Cognition: Independent DME/Equipment Comments ADA bathroom, has 4ww/seat OT Current Status Subjective Patient is uncertain why she is on a bed alatorre and bedrest. Mental Status/Objective Patient Orientation: Person, Place, Time, Situation Current Glasses/Contacts: Yes Hand Dominance: Right Upper Extremity ROM WFLS except IR behind back, limited joint approximation d/t excessive soft tissue Upper Extremity Coordination INTACT Upper Extremity Sensation INTACT Upper Extremity Strength +3/5 ADL-Treatment Eating (QC): 6 Oral Hygiene (QC): 5 (set up bedside while in recliner) Shower/Bathe Self (QC): 7 Upper Body Dressing (QC): 4 Lower Body Dressing (QC): 3 On/Off Footwear (QC): 3 Toileting Hygiene (QC): 3 Education OT Patient Education: Correct positioning, Exercise program, Modified ADL techniques, Progress toward Goal/Update tx plan, Purpose of tx/functional activities, Reviewed precautions, Rehab process, Safety issues, Transfer techniques, Use of adapted equipment Teaching Recipient: Patient Teaching Methods: Demonstration Response to Teaching: Verbalize Understanding, Reinforcement Needed OT Group Home Goals Group Home Goals Eating (QC): 6 Oral Hygiene (QC): 6 Toileting Hygiene (QC): 4 Shower/Bathe Self (QC): 5 Upper Body Dressing (QC): 6 Lower Body Dressing (QC): 6 On/Off Footwear (QC): 6 1=Demonstrate adherence to instructed precautions during ADL tasks. 2=Patient will verbalize/demonstrate understanding of assistive devices/modifications for ADL. 3=Patient will improve strength/tolerance for activity to enable patient to perform ADL's. OT Education/Plan Problem List/Assessment Assessment: Decreased Activ Tolerance, Decreased UE Strength, Impaired Coordination, Impaired Self-Care Skills Discharge Recommendations Plan/Recommendations: Continue POC Therapy Discharge Recommendati: Post Acute OT Treatment Plan/Plan of Care Treatment,Training & Education: Yes Patient would benefit from OT for education, treatment and training to promote independence in ADL's, mobility, safety and/or upper extremity function for ADL's. Plan of Care: ADL Retraining, Concurrent Therapy, Functional Mobility, Group Exercise/Act as Ind, UE Funct Exercise/Act Treatment Duration: Feb 14, 2023 Frequency: 3 times per week (3-5 times per week) Estimated Hrs Per Day: .25 hour per day Agreement: Yes Rehab Potential: Fair Time Start Time: 08:09 Stop Time: 08:29 DATE: Feb 10, 2023 Total Time Billed (hr/min): 20 Billed Treatment Time EVM 20 min MIGUEL HERNÁNDEZ OT Feb 10, 2023 15:28
[2023-02-10] MEDS: HYDROcodone/ACETAMINOPHEN 5 MG/325 MG TABLET PO SCH (21:46)
[2023-02-11] MEDS: MEROPENEM 500 MG/NS 100 ML IVPB IV SCH ×4 (02:51→10:57)
[2023-02-11 03:13] VITALS: BP 123/70
[2023-02-11] MEDS: ENOXAPARIN 60 MG/0.6 ML SYRINGE SC SCH (05:14)
[2023-02-11] MEDS: THERAPEUTIC MULTIVITAMIN W/MINERALS TABLET PO SCH (05:14)
[2023-02-11 06:24] LABS: BASOPHILS % (AUTO) 1 % (0-10); EOSINOPHILS # (AUTO) 0.1 10^3/uL (0.0-0.3); EOSINOPHILS % (AUTO) 2 % (0-10); HEMATOCRIT 35 % (35-52); HEMOGLOBIN 11.4 g/dL (11.5-16.0); LYMPHOCYTES # (AUTO) 1.1 10^3/uL (1.0-4.0); LYMPHOCYTES % (AUTO) 17 % (12-44); MEAN CORPUSCULAR HEMOGLOBIN 34 pg (25-34); MEAN CORPUSCULAR HGB CONC 33 g/dL (32-36); MEAN CORPUSCULAR VOLUME 104 fL (80-99); MEAN PLATELET VOLUME 9.2 fL (9.0-12.2); MONOCYTES # (AUTO) 0.6 10^3/uL (0.0-1.0); MONOCYTES % (AUTO) 10 % (0-12); NEUTROPHILS # (AUTO) 4.5 10^3/uL (1.8-7.8); NEUTROPHILS % (AUTO) 70 % (42-75); PLATELET COUNT 131 10^3/uL (130-400); WHITE BLOOD COUNT 6.4 10^3/uL (4.3-11.0)
[2023-02-11 06:44] LABS: POTASSIUM 3.8 MMOL/L (3.6-5.0)
[2023-02-11 06:45] LABS: CALCIUM 8.3 MG/DL (8.5-10.1)
[2023-02-11 06:46] LABS: TOTAL PROTEIN 4.5 GM/DL (6.4-8.2)
[2023-02-11 06:48] LABS: BILIRUBIN,TOTAL 1.7 MG/DL (0.1-1.0)
[2023-02-11 06:50] LABS: CREATININE SERUM 1.56 MG/DL (0.60-1.30)
[2023-02-11] MEDS: FUROSEMIDE INJECTION 40 MG/4 ML VIAL IVP SCH (06:50)
[2023-02-11] MEDS: CATHETER FLUSH 10 ML SYR IVP SCH ×2 (06:50→14:09)
[2023-02-11] MEDS: RT-Ipratropium/Albuterol NEB 3 ML VIAL INH SCH (06:59)
[2023-02-11] MEDS: ASPIRIN 81 MG CHEWABLE TABLET PO SCH (07:56)
[2023-02-11] MEDS: CHOLESTYRAMINE LITE 4 GM PACKET PO SCH (07:56)
[2023-02-11] MEDS: LACTOBACILLUS ACIDOPHILUS (PROBIOTIC) CAPSULE PO SCH ×2 (07:56→13:02)
[2023-02-11 08:10] VITALS: BP 107/67
[2023-02-11] MEDS: CALCIUM CARBONATE 600 MG TABLET PO SCH (08:41)
--- NOTE | 2023-02-11 10:11 | Physical Therapy Progress Note ---
Therapy Progress Note Patient is on Hold per RN due to new onset A-fib with RVR. Will continue to monitor patient's status. DEANNA VERDE PT Feb 11, 2023 10:10
--- NOTE | 2023-02-11 10:51 | Occ Therapy Progress Note ---
Therapy Progress Note Patient is on Hold per RN due to new onset A-fib with RVR. Will continue to monitor patient's status. OT COMMUNICATED HOLD TO PATIENT MIGUEL HERNÁNDEZ OT Feb 11, 2023 10:51
[2023-02-11] MEDS ORDERED: ACHD5005 PO (11:13)
[2023-02-11] MEDS ORDERED: MV,I66.7 PO (11:13)
[2023-02-11] MEDS ORDERED: CALC600T91 PO (11:13)
[2023-02-11] MEDS ORDERED: FURO40TA4 PO (11:13)
[2023-02-11] MEDS ORDERED: ASPI81TA64 PO (11:13)
[2023-02-11] MEDS ORDERED: ACET-93 PO (11:13)
[2023-02-11] MEDS ORDERED: CHOL4PAC3 PO (11:13)
[2023-02-11] MEDS ORDERED: MULT-1136 PO (11:13)
[2023-02-11] MEDS ORDERED: IPRA3AMP31 INH (11:13)
[2023-02-11] MEDS ORDERED: APIX5TAB PO (11:13)
[2023-02-11] MEDS ORDERED: EMPA25TA PO (11:13)
[2023-02-11] MEDS ORDERED: LACT1CAP7 PO (11:13)
[2023-02-11] MEDS ORDERED: CEFD300C3 PO (11:14)
--- NOTE | 2023-02-11 11:56 | Progress Note ---
KRYSTAL REYES 02/11/23 1156: Progress Note 02/11/2023: CC: Acute Hypoxic Respiratory Failure, Acute on Chronic Diastolic CHF Lucila is a 77 year old female that came to the ED on 02/07 due to SOB, confusion, and lower extremity edema. In the ED, it was also discovered that Lucila had some CXR abnormalities that could not rule out pneumonia. Due to her other medical concerns and potential for pneumonia she was placed on meropenem. Lucila has remained on meropenem for 02/07-02/11. For her respiratory concerns, she was given supplemental oxygen. Apart from stated confusion in ED, Lucila has been alert and cognizant for her entire stay at the hospital. From the ED, she was transferred to the ICU for management of CHF symptoms. Cardiology was consulted and confirmed that Lucila was experiencing Acute on Chronic L- Ventricular Diastolic Dysfunction.For her cardiac concerns, she was placed on Furosemide (Lasix) to help relieve the acute exacerbation of CHF. She has been on telemetry for her stay. The edema in her Lower extremities and left arm was present prior to hospital admission, but was worse on 02/08. The treatment for the CHF has helped relieve the edema. The edema at time of discharge was 2+. Additionally, while in the hospital it was found that her BUN and Cr have been increased, eluding to Chronic Kidney Disease. Her labs have continued to impro ve, likely due to her IV fluids. Lucila has also had some issues with diarrhea. The diarrhea was screened for C. diff and A/B toxin- these screenings were negative. Symptomatic treatment for the diarrhea has improved symptoms. She was given loperamide, cholestyramine, and a probiotic. On 02/11, telemetry found incidental A. Fib without RVR. Cardiology was consulted about this. It is presumed that she has had A. Fib on and off prior to hospital admission given heart and lung pathologies. The plan for discharge is to go to a nursing home facility to continue to gain strenght. She has had OT and PT consults, both showing a need for continued supportive therapy. Lucila should follow-up with her bobbin handler at [facility] for continued management of A. Fib and CHF. For her suspected pneumonia, meropenem was discontinued and replaced with Omnicef (cefdinir) which she will take outpatient. Her primary care doctor can manage other health concerns. Her meds at time of discharge for hospital concerns: Omnicef 300mg BID PO, Eliquis 5mg Q24 PO, Lasix 40mg Q24 PO, supportive diarrhea medications. ANNE-MARIE HYMAN DO 02/12/23 0610: Supervisory-Addendum Brief Verification & Attestation Participated in pt care: history, MDM, physical Personally performed: exam, history, MDM, supervision of care Care discussed with: Medical Student Procedures: n/a Results interpretation: Verified all documentation Verification and Attestation of Medical Student E/M Service A medical student performed and documented this service in my presence. I reviewed and verified all information documented by the medical student and made modifications to such information, when appropriate. I personally performed the physical exam and medical decision making. Anne-Marie Hyman, Feb 12, 2023,06:10 KRYSTAL REYES Feb 11, 2023 11:56 ANNE-MARIE HYMAN DO Feb 12, 2023 06:10
[2023-02-11 12:30] VITALS: BP 112/68
--- NOTE | 2023-02-11 12:40 | Discharge Inst-Skilled Nursing ---
Discharge Inst-Skilled NF Reconcile Patient Problems Problems Reviewed?: Yes Patient Instructions Patient Problems: CHF Suspected [facility] New AF Consult/Follow Up/Orders Skilled NF Admit to: [facility] Certification (SNF) I certify that SNF services are required to be given on an inpatient basis because of the above named patient's need for half-way care on a c ontinuing basis for the conditions(s) for which he/she was receiving inpatient hospital services prior to his/her transfer to the SNF. Care Home Facility Order: Nursing Services, Aeronautics Teacher-Evaluate & Treat, Physical Therapy-Evaluate & Treat Oxygen Delivery Method: Room Air Discharge Diet: No Restrictions Resuscitation Status: Do Not Resuscitate New & Resume Previous Orders Anne-Marie Peter Feb 11, 2023 12:39 ANNE-MARIE PETER DO Feb 11, 2023 12:40
[2023-02-11] MEDS ORDERED: METO-351 PO (12:58)
--- NOTE | 2023-02-11 12:58 | Discharge Summary ---
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 Patient requires O2 and does not use at home and has no h/o VA but appears to have the condition. Discharge Summary Discharge Physical Examination Allergies: Coded Allergies: Penicillins (Verified Allergy, Unknown, 02/08/23) Vitals & I&Os Vital Signs Date Time Temp Pulse Resp B/P (MAP) Pulse Ox O2 Delivery O2 Flow Rate FiO2 02/11/23 15:32 02/11/23 12:47 78 02/11/23 12:30 36.1 16 95 Room Air 02/10/23 04:00 1.00 02/09/23 15:56 21 General Appearance: Alert, Oriented X3, Cooperative Respiratory: Clear to Auscultation Cardiovascular: Regular Rate Psych/Mental Status: Mental Status NL Hospital Course Was the Problem List Reviewed?: Yes Lucila is a 77 year old female that came to the ED on 02/07 due to SOB, confusion, and lower extremity edema. In the ED, it was also discovered that Lucila had some CXR abnormalities that could not rule out pneumonia. Due to her other medical concerns and potential for pneumonia she was placed on meropenem. Lucila has remained on meropenem for 02/07-02/11. For her respiratory concerns, she was given supplemental oxygen. Apart from stated confusion in ED, Lucila has been alert and cognizant for her entire stay at the hospital. From the ED, she was transferred to the ICU for management of CHF symptoms. Cardiology was consulted and confirmed that Lucila was experiencing Acute on Chronic L- Ventricular Diastolic Dysfunction.For her cardiac concerns, she was placed on Furosemide (Lasix) to help relieve the acute exacerbation of CHF. She has been on telemetry for her stay. The edema in her Lower extremities and left arm was present prior to hospital admission, but was worse on 02/08. The treatment for the CHF has helped relieve the edema. The edema at time of discharge was 2+. Additionally, while in the hospital it was found that her BUN and Cr have been increased, eluding to Chronic Kidney Disease. Her labs have continued to improve, likely due to her IV fluids. Lucila has also had some issues with diarrhea. The diarrhea was screened for C. diff and A/B toxin- these screenings were negative. Symptomatic treatment for the diarrhea has improved symptoms. She was given loperamide, cholestyramine, and a probiotic. On 02/11, telemetry found incidental A. Fib without RVR. Cardiology was consulted about this. It is presumed that she has had A. Fib on and off prior to hospital admission given h eart and lung pathologies. The plan for discharge is to go to a fdc facility to continue to gain strenght. She has had OT and PT consults, both showing a need for continued supportive therapy. Lucila should follow-up with her rn transplant at [facility] for continued management of A. Fib and CHF. For her suspected pneumonia, meropenem was discontinued and replaced with Omnicef (cefdinir) which she will take outpatient. Her primary care doctor can manage other health concerns. Her meds at time of discharge for hospital concerns: Omnicef 300mg BID PO, Eliquis 5mg Q24 PO, Lasix 40mg Q24 PO, supportive diarrhea medications. Labs (last 24 hrs) Laboratory Tests 02/07/23 23:22: Influenza Type A (RT-PCR) Not Detected, Influenza Type B (RT-PCR) Not Detected, SARS-CoV-2 RNA (RT-PCR) Not Detected 02/07/23 23:40: Glucometer 104 02/07/23 23:45: White Blood Count 8.8, Red Blood Count 3.72L, Hemoglobin 12.8, Hematocrit 39, Mean Corpuscular Volume 104H, Mean Corpuscular Hemoglobin 34, Mean Corpuscular Hemoglobin Concent 33, Red Cell Distribution Width 15.1H, Platelet Count 135, Mean Platelet Volume 9.2, Immature Granulocyte % (Auto) 2, Neutrophils (%) (Auto) 85H, Lymphocytes (%) (Auto) 5L, Monocytes (%) (Auto) 6, Eosinophils (%) (Auto) 1, Basophils (%) (Auto) 0, Neutrophils # (Auto) 7.5, Lymphocytes # (Auto) 0.5L, Monocytes # (Auto) 0.5, Eosinophils # (Auto) 0.1, Basophils # (Auto) 0.0, Immature Granulocyte # (Auto) 0.2H, Neutrophils % (Manual) 87, Lymphocytes % (Manual) 4, Monocytes % (Manual) 4, Eosinophils % (Manual) 1, Band Neutrophils 4, Platelet Estimate ADEQUATE, Poikilocytosis MODERATE, Anisocytosis SLIGHT, Macrocytosis SLIGHT, Prothrombin Time 16.4H, INR Comment 1.3, Activated Partial Thromboplast Time 37H, Sodium Level 136, Potassium Level 4.3, Chloride Level 104, Carbon Dioxide Level 22, Anion Gap 10, Blood Urea Nitrogen 33H, Creatinine 1.33H, Estimat Glomerular Filtration Rate 41, BUN/Creatinine Ratio 25, Glucose Level 116H, Lactic Acid Level 2.26*H, Calcium Level 8.4L, Corrected Calcium 9.5, Magnesium Level 2.0, Total Bilirubin 2.9H, Aspartate Amino Transf (AST/SGOT) 32, Alanine Aminotransferase (ALT/SGPT) 16, Alkaline Phosphatase 111, C-Reactive Protein High Sensitivity 12.42H, B-Type Natriuretic Peptide 579.9H, Total Protein 5.5L, Albumin 2.6L, TSH [place] Testing 1.59 02/08/23 00:30: Urine Color YELLOW, Urine Clarity CLEAR, Urine pH 5.0, Urine Specific [place] 1.010L, Urine Protein NEGATIVE, Urine Glucose (UA) 3+H, Urine Ketones NEGATIVE, Urine Nitrite NEGATIVE, Urine Bilirubin NEGATIVE, Urine Urobilinogen 1.0, Urine Leukocyte Esterase NEGATIVE, Urine RBC (Auto) TRACEH, Urine RBC RARE, Urine WBC NONE, Urine Squamous Epithelial Cells RARE, Urine Crystals PRESENTH, Urine Amorphous Sediment FEW DARION URATESH, Urine Bacteria NEGATIVE, Urine Casts NONE, Urine Mucus SMALLH, Urine Culture Indicated NO 02/08/23 02:27: Lactic Acid Level 2.06*H 02/08/23 04:47: Lactic Acid Level 1.70, White Blood Count 14.4H, Red Blood Count 3.38L, Hemoglobin 11.5, Hematocrit 35, Mean Corpuscular Volume 103H, Mean Corpuscular Hemoglobin 34, Mean Corpuscular Hemoglobin Concent 33, Red Cell Distribution Width 15.0H, Platelet Count 113L, Mean Platelet Volume 9.4, Immature Granulocyte % (Auto) 2, Neutrophils (%) (Auto) 83H, Lymphocytes (%) (Auto) 3L, Monocytes (%) (Auto) 11, Eosinophils (%) (Auto) 0, Basophils (%) (Auto) 1, Neutrophils # (Auto) 12.0H, Lymphocytes # (Auto) 0.4L, Monocytes # (Auto) 1.6H, Eosinophils # (Auto) 0.0, Basophils # (Auto) 0.1, Immature Granulocyte # (Auto) 0.3H, Neutrophils % (Manual) 84, Lymphocytes % (Manual) 3, Monocytes % (Manual) 10, Band Neutrophils 3, Poikilocytosis SLIGHT, Anisocytosis SLIGHT, Macrocytosis SLIGHT, Elliptocytes SLIGHT, Sodium Level 137, Potassium Level 4.3, Chloride Level 106, Carbon Dioxide Level 22, Anion Gap 9, Blood Urea Nitrogen 34H, Creati nine 1.36H, Estimat Glomerular Filtration Rate 40, BUN/Creatinine Ratio 25, Glucose Level 104, Calcium Level 8.0L, Corrected Calcium 9.4, Phosphorus Level 2.5, Magnesium Level 1.7, Total Bilirubin 2.9H, Aspartate Amino Transf (AST/SGOT) 33, Alanine Aminotransferase (ALT/SGPT) 14, Alkaline Phosphatase 92, C-Reactive Protein High Sensitivity 10.50H, B-Type Natriuretic Peptide 1027.4H, Total Protein 4.8L, Albumin 2.2L 02/09/23 03:58: White Blood Count 8.3, Red Blood Count 3.20L, Hemoglobin 11.1L, Hematocrit 34L, Mean Corpuscular Volume 105H, Mean Corpuscular Hemoglobin 35H, Mean Corpuscular Hemoglobin Concent 33, Red Cell Distribution Width 15.3H, Platelet Count 130, Mean Platelet Volume 9.3, Immature Granulocyte % (Auto) 1, Neutrophils (%) (Au to) 76H, Lymphocytes (%) (Auto) 12, Monocytes (%) (Auto) 10, Eosinophils (%) (Auto) 2, Basophils (%) (Auto) 1, Neutrophils # (Auto) 6.3, Lymphocytes # (Auto) 1.0, Monocytes # (Auto) 0.8, Eosinophils # (Auto) 0.2, Basophils # (Auto) 0.0, Immature Granulocyte # (Auto) 0.1, Sodium Level 136, Potassium Level 4.2, Chloride Level 106, Carbon Dioxide Level 20L, Anion Gap 10, Blood Urea Nitrogen 41H, Creatinine 1.67H, Estimat Glomerular Filtration Rate 31, BUN/Creatinine Ratio 25, Glucose Level 127H, Calcium Level 8.0L, Corrected Calcium 9.5, Phosphorus Level 3.4, Magnesium Level 2.3, Total Bilirubin 2.0H, Aspartate Amino Transf (AST/SGOT) 41H, Alanine Aminotransferase (ALT/SGPT) 16, Alkaline Phosphatase 92, Total Protein 4.7L, Albumin 2.1L, Percent Immature Platelet Fraction 1.5, Smear Scan YES 02/10/23 08:25: White Blood Count 9.7, Red Blood Count 3.71L, Hemoglobin 12.7, Hematocrit 39, Mean Corpuscular Volume 106H, Mean Corpuscular Hemoglobin 34, Mean Corpuscular Hemoglobin Concent 32, Red Cell Distribution Width 15.4H, Platelet Count 132, Mean Platelet Volume 9.3, Immature Granulocyte % (Auto) 1, Neutrophils (%) (Auto) 77H, Lymphocytes (%) (Auto) 12, Monocytes (%) (Auto) 9, Eosinophils (%) (Auto) 2, Basophils (%) (Auto) 1, Neutrophils # (Auto) 7.4, Lymphocytes # (Auto) 1.1, Monocytes # (Auto) 0.8, Eosinophils # (Auto) 0.2, Basophils # (Auto) 0.1, Immature Granulocyte # (Auto) 0.1, Sodium Level 136, Potassium Level 4.0, Chloride Level 105, Carbon Dioxide Level 23, Anion Gap 8, Blood Urea Nitrogen 44H, Creatinine 1.64H, Estimat Glomerular Filtration Rate 32, BUN/Creatinine Ratio 27, Glucose Level 99, Calcium Level 8.2L, Corrected Calcium 9.6, Magnesium Level 2.2, Total Bilirubin 2.0H, Aspartate Amino Transf (AST/SGOT) 39H, Alanine Aminotransferase (ALT/SGPT) 16, Alkaline Phosphatase 91, Total Protein 4.8L, Albumin 2.2L 02/11/23 06:04: White Blood Count 6.4, Red Blood Count 3.37L, Hemoglobin 11.4L, Hematocrit 35, Mean Corpuscular Volume 104H, Mean Corpuscular Hemoglobin 34, Mean Corpuscular Hemoglobin Concent 33, Red Cell Distribution Width 15.3H, Platelet Count 131, Mean Platelet Volume 9.2, Immature Granulocyte % (Auto) 1, Neutrophils (%) (Auto) 70, Lymphocytes (%) (Auto) 17, Monocytes (%) (Auto) 10, Eosinophils (%) (Auto) 2, Basophils (%) (Auto) 1, Neutrophils # (Auto) 4.5, Lymphocytes # (Auto) 1.1, Monocytes # (Auto) 0.6, Eosinophils # (Auto) 0.1, Basophils # (Auto) 0.0, Immature Granulocyte # (Auto) 0.1, Sodium Level 137, Potassium Level 3.8, Chloride Level 106, Carbon Dioxide Level 21, Anion Gap 10, Blood Urea Nitrogen 49H, Creatinine 1.56H, Estimat Glomerular Filtration Rate 34, BUN/Creatinine Ratio 31, Glucose Level 102, Calcium Level 8.3L, Corrected Calcium 9.9, Magnesium Level 2.0, Total Bilirubin 1.7H, Aspartate Amino Transf (AST/SGOT) 36H , Alanine Aminotransferase (ALT/SGPT) 15, Alkaline Phosphatase 93, Total Protein 4.5L, Albumin 2.0L Microbiology 02/10/23 C. difficile GDH Antigen & Toxins - Final, Complete 02/08/23 MRSA Screen - Final, Complete MRSA not isolated 02/08/23 Blood Culture - Preliminary, Resulted Pending Labs Microbiology Date/Time Source Procedure Growth Status 02/10/23 06:55 Stool C. difficile GDH Antigen & Toxins - Final Complete 02/08/23 02:56 Nasal MRSA Screen - Final MRSA not isolated Complete 02/08/23 02:27 Peripheral Arm, Right Blood Culture - Preliminary Resulted 02/07/23 23:45 Peripheral Arm, Right Blood Culture - Final Streptococcus mitis group No Susceptibility Performed See Comments Complete Laboratory Tests 02/07/23 23:22: Influenza Type A (RT-PCR) Not Detected, Influenza Type B (RT-PCR) Not Detected, SARS-CoV-2 RNA (RT-PCR) Not Detected 02/07/23 23:40: Glucometer 104 02/07/23 23:45: White Blood Count 8.8, Red Blood Count 3.72, Hemoglobin 12.8, Hematocrit 39, Mean Corpuscular Volume 104, Mean Corpuscular Hemoglobin 34, Mean Corpuscular Hemoglobin Concent 33, Red Cell Distribution Width 15.1, Platelet Count 135, Mean Platelet Volume 9.2, Immature Granulocyte % (Auto) 2, Neutrophils (%) (Auto) 85, Lymphocytes (%) (Auto) 5, Monocytes (%) (Auto) 6, Eosinophils (%) (Auto) 1, Basophils (%) (Auto) 0, Neutrophils # (Auto) 7.5, Lymphocytes # (Auto) 0.5, Monocytes # (Auto) 0.5, Eosinophils # (Auto) 0.1, Basophils # (Auto) 0.0, Immature Granulocyte # (Auto) 0.2, Neutrophils % (Manual) 87, Lymphocytes % (Manual) 4, Monocytes % (Manual) 4, Eosinophils % (Manual) 1, Band Neutrophils 4, Platelet Estimate ADEQUATE, Poikilocytosis MODERATE, Anisocytosis SLIGHT, Macrocytosis SLIGHT, Prothrombin Time 16.4, INR Comment 1.3, Activated Partial Thromboplast Time 37, Sodium Level 136, Potassium Level 4.3, Chloride Level 104, Carbon Dioxide Level 22, Anion Gap 10, Blood Urea Nitrogen 33, Creatinine 1.33, Estimat Glomerular Filtration Rate 41, BUN/Creatinine Ratio 25, Glucose Level 1 16, Lactic Acid Level 2.26, Calcium Level 8.4, Corrected Calcium 9.5, Magnesium Level 2.0, Total Bilirubin 2.9, Aspartate Amino Transf (AST/SGOT) 32, Alanine Aminotransferase (ALT/SGPT) 16, Alkaline Phosphatase 111, C-Reactive Protein High Sensitivity 12.42, B-Type Natriuretic Peptide 579.9, Total Protein 5.5, Albumin 2.6, TSH [place] Testing 1.59 02/08/23 00:30: Urine Color YELLOW, Urine Clarity CLEAR, Urine pH 5.0, Urine Specific [place] 1.010, Urine Protein NEGATIVE, Urine Glucose (UA) 3+, Urine Ketones NEGATIVE, Urine Nitrite NEGATIVE, Urine Bilirubin NEGATIVE, Urine Urobilinogen 1.0, Urine Leukocyte Esterase NEGATIVE, Urine RBC (Auto) TRACE, Urine RBC RARE, Urine WBC NONE, Urine Squamous Epithelial Cells RARE, Urine Crystals PRESENT, Urine Amorphous Sediment FEW DARION URATES, Urine Bacteria NEGATIVE, Urine Casts NONE, Urine Mucus SMALL, Urine Culture Indicated NO 02/08/23 02:27: Lactic Acid Level 2.06 02/08/23 04:47: Lactic Acid Level 1.70, White Blood Count 14.4, Red Blood Count 3.38, Hemoglobin 11.5, Hematocrit 35, Mean Corpuscular Volume 103, Mean Corpuscular Hemoglobin 34, Mean Corpuscular Hemoglobin Concent 33, Red Cell Distribution Width 15.0, Platelet Count 113, Mean Platelet Volume 9.4, Immature Granulocyte % (Auto) 2, Neutrophils (%) (Auto) 83, Lymphocytes (%) (Auto) 3, Monocytes (%) (Auto) 11, Eosinophils (%) (Auto) 0, Basophils (%) (Auto) 1, Neutrophils # (Auto) 12.0, Lymphocytes # (Auto) 0.4, Monocytes # (Auto) 1.6, Eosinophils # (Auto) 0.0, Basophils # (Auto) 0.1, Immature Granulocyte # (Auto) 0.3, Neutrophils % (Manual) 84, Lymphocytes % (Manual) 3, Monocytes % (Manual) 10, Band Neutrophils 3, Poikilocytosis SLIGHT, Anisocytosis SLIGHT, Macrocytosis SLIGHT, Elliptocytes SLIGHT, Sodium Level 137, Potassium Level 4.3, Chloride Level 106, Carbon Dioxide Level 22, Anion Gap 9, Blood Urea Nitrogen 34, Creatinine 1.36, Estimat Glomerular Filtration Rate 40, BUN/Creatinine Ratio 25, Glucose Level 104, Calcium Level 8.0, Corrected Calcium 9.4, Phosphorus Level 2.5, Magnesium Level 1.7, Total Bilirubin 2.9, Aspartate Amino Transf (AST/SGOT) 33, Alanine Aminotransferase (ALT/SGPT) 14, Alkaline Phosphatase 92, C-Reactive Protein High Sensitivity 10.50, B-Type Natriuretic Peptide 1027.4, Total Protein 4.8, Albumin 2.2 02/09/23 03:58: White Blood Count 8.3, Red Blood Count 3.20, Hemoglobin 11.1, Hematocrit 34, Mean Corpuscular Volume 105, Mean Corpuscular Hemoglobin 35, Mean Corpuscular Hemoglobin Concent 33, Red Cell Distribution Width 15.3, Platelet Count 130, Mean Platelet Volume 9.3, Immature Granulocyte % (Auto) 1, Neutrophils (%) (Auto) 76, Lymphocytes (%) (Auto) 12, Monocytes (%) (Auto) 10, Eosinophils (%) (Auto) 2, Basophils (%) (Auto) 1, Neutrophils # (Auto) 6.3, Lymphocytes # (Auto) 1.0, Monocytes # (Auto) 0.8, Eosinophils # (Auto) 0.2, Basophils # (Auto) 0.0, Immature Granulocyte # (Auto) 0.1, Sodium Level 136, Potassium Level 4.2, Chloride Level 106, Carbon Dioxide Level 20, Anion Gap 10, Blood Urea Nitrogen 41, Creatinine 1.67, Estimat Glomerular Filtration Rate 31, BUN/Creatinine Ratio 25, Glucose Level 127, Calcium Level 8.0, Corrected Calcium 9.5, Phosphorus Level 3.4, Magnesium Level 2.3, Total Bilirubin 2.0, Aspartate Amino Transf (AST/SGOT) 41, Alanine Aminotransferase (ALT/SGPT) 16, Alkaline Phosphatase 92, Total Protein 4.7, Albumin 2.1, Percent Immature Platelet Fraction 1.5, Smear Scan YES 02/10/23 08:25: White Blood Count 9.7, Red Blood Count 3.71, Hemoglobin 12.7, Hematocrit 39, Mean Corpuscular Volume 106, Mean Corpuscular Hemoglobin 34, Mean Corpuscular Hemoglobin Concent 32, Red Cell Distribution Width 15.4, Platelet Count 132, Mean Platelet Volume 9.3, Immature Granulocyte % (Auto) 1, Neutrophils (%) (Auto) 77, Lymphocytes (%) (Auto) 12, Monocytes (%) (Auto) 9, Eosinophils (%) (Auto) 2, Basophils (%) (Auto) 1, Neutrophils # (Auto) 7.4, Lymphocytes # (Auto) 1.1, Monocytes # (Auto) 0.8, Eosinophils # (Auto) 0.2, Basophils # (Auto) 0.1, Immature Granulocyte # (Auto) 0.1, Sodium Level 136, Potassium Level 4.0, Chloride Level 105, Carbon Dioxide Level 23, Anion Gap 8, Blood Urea Nitrogen 44, Creatinine 1.64, Estimat Glomerular Filtration Rate 32, BUN/Creatinine Ratio 27, Glucose Level 99, Calcium Level 8.2, Corrected Calcium 9.6, Magnesium Level 2.2, Total Bilirubin 2.0, Aspartate Amino Transf (AST/SGOT) 39, Alanine Aminotransferase (ALT/SGPT) 16, Alkaline Phosphatase 91, Total Protein 4.8, Albumin 2.2 02/11/23 06:04: White Blood Count 6.4, Red Blood Count 3.37, Hemoglobin 11.4, Hematocrit 35, Mean Corpuscular Volume 104, Mean Corpuscular Hemoglobin 34, Mean Corpuscular Hemoglobin Concent 33, Red Cell Distribution Width 15.3, Platelet Count 131, Mean Platelet Volume 9.2, Immature Granulocyte % (Auto) 1, Neutrophils (%) (Au to) 70, Lymphocytes (%) (Auto) 17, Monocytes (%) (Auto) 10, Eosinophils (%) (Auto) 2, Basophils (%) (Auto) 1, Neutrophils # (Auto) 4.5, Lymphocytes # (Auto) 1.1, Monocytes # (Auto) 0.6, Eosinophils # (Auto) 0.1, Basophils # (Auto) 0.0, Immature Granulocyte # (Auto) 0.1, Sodium Level 137, Potassium Level 3.8, Chloride Level 106, Carbon Dioxide Level 21, Anion Gap 10, Blood Urea Nitrogen 49, Creatinine 1.56, Estimat Glomerular Filtration Rate 34, BUN/Creatinine Ratio 31, Glucose Level 102, Calcium Level 8.3, Corrected Calcium 9.9, Magnesium Level 2.0, Total Bilirubin 1.7, Aspartate Amino Transf (AST/SGOT) 36, Alanine Aminotransferase (ALT/SGPT) 15, Alkaline Phosphatase 93, Total Protein 4.5, Albumin 2.0 Discharge Home Medications: Active Scripts Active Toprol Xl (Metoprolol Succinate) 25 Mg Tab.er.24h 25 Mg PO DAILY Cefdinir 300 Mg Capsule 300 Mg PO BID Acidophilus-Pectin Capsule (Lactobacillus Acidophilus/Pect) 75 Million Cell-100 Mg Capsule 2 Each PO TIDWM Acetaminophen 500 Mg Tablet 1,000 Mg PO Q6H PRN Children's Aspirin (Aspirin) 81 Mg Tab.chew 81 Mg PO DAILY Prevalite Packet (Cholestyramine/Aspartame) 4 Gram Powd.pack 4 Gm PO BID PRN Eliquis (Apixaban) 5 Mg Tablet 5 Mg PO BID Iprat-Albut 0.5-3(2.5) mg/3 ml (Ipratropium/Albuterol Sulfate) 0.5 Mg-3 Mg (2.5 Mg Base)/3 Ml Ampul.neb 3 Ml INH RTQ4HR PRN Hair, Skin & Nails Softgel (Mv,Iron,Min/Folic Acid/Biotin) 66.7 Mcg-1,666.7 Mcg Capsule 66.7 Mcg PO DAILY Hydrocodone-Acetamin 5-325 mg (Hydrocodone/Acetaminophen) 5 Mg-325 Mg Tablet 1 Tab PO Q8H PRN Furosemide 40 Mg Tablet 40 Mg PO DAILY Calcium (Calcium Carbonate) 600 Mg Calcium (1500 Mg) Tablet 600 Mg PO DAILY Multivitamin 1 Each Tablet 1 Each PO DAILY Jardiance (Empagliflozin) 25 Mg Tablet 25 Mg PO DAILY Instructions to patient/family Please see electronic discharge instructions given to patient. OLY HYMAN DO Feb 11, 2023 12:58
[2023-02-11] MEDS ORDERED: APIXABAN 5 MG TABLET PO SCH (21:00)
== END 2023-02-11 15:23 | DRG 871 ==
LOC: EDUNIT# 23:14 → ER 23:17 → ICU 02-08 02:42 → 4TH 02-10 06:00
PROVIDERS: ADMIT Internal Medicine; ATTEND Internal Medicine
DX: A41.9 Sepsis, unspecified organism (principal); J18.9 Pneumonia, unspecified organism; J96.01 Acute respiratory failure with hypoxia; N17.9 Acute kidney failure, unspecified; I13.0 Hypertensive heart and chronic kidney disease with heart failure and stage 1 through stage 4 chronic kidney disease, or unspecified chronic kidney disease; Z68.43 Body mass index [BMI] 50.0-59.9, adult; Z20.822 Contact with and (suspected) exposure to COVID-19; Z90.12 Acquired absence of left breast and nipple; E87.70 Fluid overload, unspecified; Z85.3 Personal history of malignant neoplasm of breast; Z85.43 Personal history of malignant neoplasm of ovary; Z92.3 Personal history of irradiation; I50.9 Heart failure, unspecified; E11.22 Type 2 diabetes mellitus with diabetic chronic kidney disease; N18.9 Chronic kidney disease, unspecified; Z92.21 Personal history of antineoplastic chemotherapy; Z66 Do not resuscitate; E66.9 Obesity, unspecified; G47.33 Obstructive sleep apnea (adult) (pediatric)
CPT/HCPCS: 36415; 51702; 70450; 71045; 80053; 81000; 82947; 83605; 83735; 83880; 84100; 84443; 85007; 85025; 85027; 85610; 85730; 86141; 87040; 87077; 87081; 87324; 87449; 87636; 93005; 93041; 93306; 94640; 94760